=== PATIENT | female | born 1960 | race Hispanic/Latino ===

== ENCOUNTER 2017-03-27 07:49 | Inpatient (IN) | payer MEDICAID, OTHER ==
[2017-03-27 08:29] LABS: Urine Drugs of Abuse Note Disclamer
[2017-03-27 08:40] LABS: Bacteria,Urine 4+ /HPF (Negative); Mucus,Urine FEW /HPF
[2017-03-27 08:50] LABS: Bilirubin,Urine NEG (Negative); Blood,Urine LG (Negative); Ketones,Urine NEG (Negative); Leukocyte Esterase,Urine TR (Negative); Nitrite,Urine NEG (Negative)
[2017-03-27 09:06] LABS: Basophils % (Auto) 0.5 % (0.0-1.8); Eosinophils % (Auto) 0.9 % (0.0-4.3); Hematocrit 31.7 % (30.3-42.9); Hemoglobin 10.6 gm/dl (10.1-14.3); Mean Corpuscular HGB Conc 33 % (30-34); Mean Corpuscular Volume 77 fl (79-97); Platelet Count 417 K/mm3 (140-440); Red Blood Count 4.12 M/mm3 (3.65-5.03); Red Cell Distribution Width 16.9 % (13.2-15.2); White Blood Count 4.6 K/mm3 (4.5-11.0)
[2017-03-27 09:21] LABS: Mean Corpuscular Hemoglobin 26 pg (28-32)
[2017-03-27 09:22] LABS: Anion Gap 21 mmol/L; BUN/Creatinine Ratio 23; Blood Urea Nitrogen 16 mg/dL (7-17); Carbon Dioxide 24 mmol/L (22-30); Chloride 75.1 mmol/L (98-107); Glucose 119 mg/dL (65-100); Potassium 3.1 mmol/L (3.6-5.0)
[2017-03-27 09:24] LABS: Sodium 117 mmol/L (137-145)
[2017-03-27] MEDS ORDERED: MACROBID PO ONE (10:26)
[2017-03-27] MEDS ORDERED: NACL 3% 200 ML IV ONE (10:26)
[2017-03-27] MEDS ORDERED: ATIVAN IV ONE (10:26)
[2017-03-27] MEDS ORDERED: K-DUR PO ONE (10:29)
--- NOTE | 2017-03-27 10:29 | Emergency Department Report ---
ED General Adult HPI - General Chief complaint: Seizure Stated complaint: SEIZURE Time Seen by Provider: 03/27/17 09:27 Source: patient, EMS (ems notes not available at time of chart dictation), RN notes reviewed, old records reviewed Mode of arrival: Stretcher Limitations: Other (patient has no recollection of convulsive event) - History of Present Illness Initial comments: This is a 56-year-old female. Patient has a past medical history of bipolar disorder, anxiety, Crohn's disease, gastric ulcer, hyponatremia. The patient presents to the ER with complaints of seizure, generalized weakness and tremulousness. Patient can't member the seizure. Her symptoms are constant, with the exception of her possible seizure, which has since resolved. She denies headache, neck pain, chest pain, abdominal pain. She endorses dysuria, and extremity aching and cramps. Her symptoms are constant. They do not have exacerbating or relieving factors. She is not homicidal nor suicidal. She denies overdose. -: Sudden Location: left, right, upper extremity, lower extremity Quality: burning, aching Consistency: constant Improves with: rest Worsens with: movement Associated Symptoms: confusion, malaise, weakness. denies: chest pain - Related Data Home Medications Medication Instructions Recorded Confirmed Last Taken Lisinopril [Zestril TAB] 5 mg PO QDAY 08/02/14 03/27/17 12/08/15 09:00 Previous Rx's Medication Instructions Recorded Last Taken Type Quetiapine Fumarate [QUEtiapine 400 mg PO QPM #10 tablet 12/11/15 Unknown Rx Fumarate] Xanax TAB 1 mg PO TID PRN #21 12/11/15 Unknown Rx buPROPion SR [Wellbutrin SR] 150 mg PO QAM #10 tablet 12/11/15 Unknown Rx Pantoprazole [Protonix] 40 mg PO QDAY #20 tablet 02/09/16 Unknown Rx traMADol [Ultram] 50 mg PO Q6HR PRN #20 tablet 02/09/16 Unknown Rx Allergies Allergy/AdvReac Type Severity Reaction Status Date / Time No Known Allergies Allergy Verified 08/02/14 10:33 ED Review of Systems ROS: Stated complaint: SEIZURE Other details as noted in HPI Constitutional: malaise, weakness Eyes: denies: eye discharge ENT: denies: epistaxis Respiratory: denies: cough Cardiovascular: denies: chest pain Gastrointestinal: denies: abdominal pain Genitourinary: dysuria Musculoskeletal: arthralgia, myalgia Skin: denies: lesions Neurological: weakness Psychiatric: anxiety. denies: homicidal thoughts, suicidal thoughts ED Past Medical Hx - Past Medical History Hx Hypertension: Yes (2010) Hx Congestive Heart Failure: No Hx Diabetes: No Hx Arthritis: Yes (spine) Hx Psychiatric Treatment: Yes (BIPOLAR,ANXIETY,PANIC ATTACK) Hx Asthma: No Hx COPD: No Hx HIV: No Additional medical history: hiatal hernia. peptic Ulcer. Blood Transfusion - Surgical History Past Surgical History?: Yes Additional Surgical History: partial hysterectomy - Social History Smoking Status: Never Smoker Substance Use Type: Alcohol, Prescribed - Medications Home Medications: Home Medications Medication Instructions Recorded Confirmed Last Taken Type Lisinopril [Zestril TAB] 5 mg PO QDAY 08/02/14 03/27/17 12/08/15 09:00 History Quetiapine Fumarate [QUEtiapine 400 mg PO QPM #10 tablet 12/11/15 03/27/17 Unknown Rx Fumarate] Xanax TAB 1 mg PO TID PRN #21 12/11/15 03/27/17 Unknown Rx buPROPion SR [Wellbutrin SR] 150 mg PO QAM #10 tablet 12/11/15 03/27/17 Unknown Rx Pantoprazole [Protonix] 40 mg PO QDAY #20 tablet 02/09/16 03/27/17 Unknown Rx traMADol [Ultram] 50 mg PO Q6HR PRN #20 tablet 02/09/16 03/27/17 Unknown Rx ED Physical Exam - General Limitations: No Limitations General appearance: alert, in no apparent distress - Head Head exam: Present: atraumatic, normocephalic - Eye Eye exam: Present: normal appearance, EOMI. Absent: nystagmus - ENT ENT exam: Present: normal exam, normal orophraynx, mucous membranes moist, normal external ear exam - Neck Neck exam: Present: normal inspection, full ROM. Absent: tenderness, meningismus - Respiratory Respiratory exam: Present: normal lung sounds bilaterally. Absent: respiratory distress, wheezes, rales, rhonchi, stridor, chest wall tenderness - Cardiovascular Cardiovascular Exam: Present: regular rate, normal rhythm, normal heart sounds. Absent: systolic murmur, diastolic murmur, rubs, gallop - GI/Abdominal GI/Abdominal exam: Present: soft, normal bowel sounds. Absent: distended, tenderness, guarding, rebound, rigid, pulsatile mass - Extremities Exam Extremities exam: Present: normal inspection, full ROM, tenderness, normal capillary refill - Back Exam Back exam: Present: normal inspection, full ROM. Absent: CVA tenderness (R), CVA tenderness (L), paraspinal tenderness, vertebral tenderness - Neurological Exam Neurological exam: Present: alert, oriented X3, other (Extraocular movements intact. Tongue midline. No facial droop. Facial sensation intact to light touch in the V1, V2, V3 distribution bilaterally. 5 and 5 strength in 4 extremities.. Sensation is intact to light touch in 4 extremities.). Absent: motor sensory deficit - Psychiatric Psychiatric exam: Present: anxious. Absent: homicidal ideation, suicidal ideation - Skin Skin exam: Present: warm, dry, intact, normal color. Absent: rash ED Course Vital Signs 03/27/17 03/27/17 03/27/17 08:14 08:15 08:18 Temperature 98.4 F Pulse Rate 84 67 Respiratory 14 26 H 18 Rate Blood Pressure 121/84 Blood Pressure [Right] O2 Sat by Pulse 100 100 Oximetry 03/27/17 03/27/17 03/27/17 08:30 08:45 09:00 Temperature Pulse Rate 90 104 H 81 Respiratory 28 H 29 H 22 Rate Blood Pressure 122/82 122/82 126/84 Blood Pressure [Right] O2 Sat by Pulse 100 100 100 Oximetry 03/27/17 03/27/17 03/27/17 09:10 09:15 09:30 Temperature Pulse Rate 85 86 Respiratory 18 20 22 Rate Blood Pressure 127/87 132/89 Blood Pressure [Right] O2 Sat by Pulse 100 100 100 Oximetry 03/27/17 03/27/17 03/27/17 09:45 10:01 10:15 Temperature Pulse Rate 92 H 105 H 90 Respiratory 24 40 H 24 Rate Blood Pressure 134/74 107/83 133/81 Blood Pressure [Right] O2 Sat by Pulse 99 99 99 Oximetry 03/27/17 03/27/17 03/27/17 10:30 10:45 11:00 Temperature Pulse Rate 89 93 H 89 Respiratory 17 20 19 Rate Blood Pressure 129/85 129/85 119/78 Blood Pressure [Right] O2 Sat by Pulse 99 98 97 Oximetry 03/27/17 03/27/17 03/27/17 11:15 11:45 12:01 Temperature Pulse Rate 87 98 H Respiratory 15 22 Rate Blood Pressure 114/84 116/80 127/76 Blood Pressure [Right] O2 Sat by Pulse 95 98 98 Oximetry 03/27/17 03/27/17 03/27/17 12:15 12:31 12:45 Temperature Pulse Rate 93 H 104 H 91 H Respiratory 28 H 18 21 Rate Blood Pressure 127/76 127/76 123/85 Blood Pressure [Right] O2 Sat by Pulse 98 97 98 Oximetry 03/27/17 03/27/17 03/27/17 13:01 13:15 13:31 Temperature Pulse Rate 106 H 95 H 88 Respiratory 25 H 18 16 Rate Blood Pressure 123/85 123/85 123/85 Blood Pressure [Right] O2 Sat by Pulse 95 97 97 Oximetry 03/27/17 13:45 Temperature 98.4 F Pulse Rate 89 Respiratory 16 Rate Blood Pressure 123/85 Blood Pressure 123/85 [Right] O2 Sat by Pulse 97 Oximetry - Reevaluation(s) Reevaluation #1: 03/27/17 11:58 Differential diagnosis, including but not limited to: Urinary tract infection, dehydration, intracranial injury, pneumonia, electrolyte derangement, hyponatremia Assessment and plan: 56-year-old female with possible seizure, currently sober, GCS of 15, no midline cervical spine pain or tenderness, NIH score of 0, no abdominal tenderness, appears dehydrated, with some urinary symptoms. Objectively speaking she has profound hyponatremia with a sodium of 117, possibly has a urinary tract infection by symptoms. Case and laboratory studies are discussed with nephrology on-call, Dr. yHman, who will see the patient in consultation. He recommends hypertonic saline, 3%, 200 mL, at 40 mL per hour for a total of 5 hours. X-ray the chest was negative. Noncontrast CT scan of the brain is negative. Hospital physician has been paged to arrange admission for further care and management. 03/27/17 13:53 Reevaluation #2: 03/27/17 12:18 Dr. Stephenson excepts the patient to the medical service. Noncontrast CT scan of the brain is negative Reevaluation #3: 03/27/17 13:37 Reevaluation #4: 03/27/17 13:39 Discussed 3% sodium chloride with pharmacist. As per the pharmacist, this hospital does not have a specific policy requires central line placement for 3% sodium chloride. The pharmacy does not specifically recommend or require a central line placements for 3% sodium chloride. It is also this provider's understanding that 3% sodium chloride administration does not require central access, and should be administered slowly to avoid burning and sclerosis. Dr. Hyman was also contacted and he concurs 03/27/17 13:53 ED Medical Decision Making - Lab Data Result diagrams: 03/27/17 08:53 03/27/17 08:53 Vital Signs 03/27/17 03/27/17 03/27/17 08:14 08:15 08:18 Temperature 98.4 F Pulse Rate 84 67 Respiratory 14 26 H 18 Rate Blood Pressure 121/84 O2 Sat by Pulse 100 100 Oximetry 03/27/17 03/27/17 03/27/17 08:30 08:45 09:00 Temperature Pulse Rate 90 104 H 81 Respiratory 28 H 29 H 22 Rate Blood Pressure 122/82 122/82 126/84 O2 Sat by Pulse 100 100 100 Oximetry 03/27/17 03/27/17 03/27/17 09:10 09:15 09:30 Temperature Pulse Rate 85 86 Respiratory 18 20 22 Rate Blood Pressure 127/87 132/89 O2 Sat by Pulse 100 100 100 Oximetry 03/27/17 03/27/17 03/27/17 09:45 10:01 10:15 Temperature Pulse Rate 92 H 105 H 90 Respiratory 24 40 H 24 Rate Blood Pressure 134/74 107/83 133/81 O2 Sat by Pulse 99 99 99 Oximetry 03/27/17 03/27/17 03/27/17 10:30 10:45 11:00 Temperature Pulse Rate 89 93 H 89 Respiratory 17 20 19 Rate Blood Pressure 129/85 129/85 119/78 O2 Sat by Pulse 99 98 97 Oximetry 03/27/17 03/27/17 11:15 11:45 Temperature Pulse Rate 87 Respiratory 15 Rate Blood Pressure 114/84 116/80 O2 Sat by Pulse 95 98 Oximetry Lab Results 03/27/17 03/27/17 03/27/17 Range/Units 08:23 08:23 08:53 WBC (4.5-11.0) K/mm3 RBC (3.65-5.03) M/mm3 Hgb (10.1-14.3) gm/dl Hct (30.3-42.9) % MCV (79-97) fl MCH (28-32) pg MCHC (30-34) % RDW (13.2-15.2) % Plt Count (140-440) K/mm3 Lymph % (Auto) (13.4-35.0) % [place] % (Auto) (0.0-7.3) % Eos % (Auto) (0.0-4.3) % Baso % (Auto) (0.0-1.8) % Lymph # (1.2-5.4) K/mm3 [place] # (0.0-0.8) K/mm3 Eos # (0.0-0.4) K/mm3 Baso # (0.0-0.1) K/mm3 Seg Neutrophils % (40.0-70.0) % Seg Neutrophils # (1.8-7.7) K/mm3 Sodium 117 L* (137-145) mmol/L Potassium 3.1 L (3.6-5.0) mmol/L Chloride 75.1 L (98-107) mmol/L Carbon Dioxide 24 (22-30) mmol/L Anion Gap 21 mmol/L BUN 16 (7-17) mg/dL Creatinine 0.7 (0.7-1.2) mg/dL Estimated GFR > 60 ml/min BUN/Creatinine Ratio 23 % Glucose 119 H (65-100) mg/dL Osmolality Mosm/kg Calcium 8.0 L (8.4-10.2) mg/dL Total Bilirubin (0.1-1.2) mg/dL Direct Bilirubin (0-0.2) mg/dL Indirect Bilirubin mg/dL AST (5-40) units/L ALT (7-56) units/L Alkaline Phosphatase (35-129) units/L Total Creatine Kinase (30-135) units/L Total Protein (6.3-8.2) g/dL Albumin (3.9-5) g/dL Albumin/Globulin Ratio % TSH (0.270-4.200) mlU/mL Urine Color Yellow (Yellow) Urine Turbidity Clear (Clear) Urine pH 6.0 (5.0-7.0) Ur Specific [place] 1.015 (1.003-1.030) Urine Protein 30 mg/dl (Negative) mg/dL Urine Glucose (UA) Neg (Negative) mg/dL Urine Ketones Neg (Negative) mg/dL Urine Blood Lg (Negative) Urine Nitrite Neg (Negative) Ur Reducing Substances Not Reportable Urine Bilirubin Neg (Negative) Urine Ictotest Not Reportable Urine Urobilinogen 2.0 (<2.0) mg/dL Ur Leukocyte Esterase Tr (Negative) Urine WBC (Auto) 11.0 H (0.0-6.0) /HPF Urine RBC (Auto) 36.0 (0.0-6.0) /HPF Urine Bacteria (Auto) 4+ (Negative) /HPF Hyaline Casts 2 /LPF Urine Mucus Few /HPF Salicylates (2.8-20.0) mg/dL Urine Opiates Screen Presumptive negative Urine Methadone Screen Presumptive negative Acetaminophen (10.0-30.0) ug/mL Ur Barbiturates Screen Presumptive negative Ur Phencyclidine Scrn Presumptive negative Ur Amphetamines Screen Presumptive negative U Benzodiazepines Scrn Presumptive positive Urine Cocaine Screen Presumptive negative U Marijuana (THC) Screen Presumptive positive Drugs of Abuse Note Disclamer Plasma/Serum Alcohol (0-0.07) gm% 03/27/17 03/27/17 03/27/17 Range/Units 08:53 08:53 08:53 WBC 4.6 (4.5-11.0) K/mm3 RBC 4.12 (3.65-5.03) M/mm3 Hgb 10.6 (10.1-14.3) gm/dl Hct 31.7 (30.3-42.9) % MCV 77 L (79-97) fl MCH 26 L (28-32) pg MCHC 33 (30-34) % RDW 16.9 H (13.2-15.2) % Plt Count 417 (140-440) K/mm3 Lymph % (Auto) 13.7 (13.4-35.0) % [place] % (Auto) 15.2 H (0.0-7.3) % Eos % (Auto) 0.9 (0.0-4.3) % Baso % (Auto) 0.5 (0.0-1.8) % Lymph # 0.6 L (1.2-5.4) K/mm3 [place] # 0.7 (0.0-0.8) K/mm3 Eos # 0.0 (0.0-0.4) K/mm3 Baso # 0.0 (0.0-0.1) K/mm3 Seg Neutrophils % 69.7 (40.0-70.0) % Seg Neutrophils # 3.2 (1.8-7.7) K/mm3 Sodium (137-145) mmol/L Potassium (3.6-5.0) mmol/L Chloride (98-107) mmol/L Carbon Dioxide (22-30) mmol/L Anion Gap mmol/L BUN (7-17) mg/dL Creatinine (0.7-1.2) mg/dL Estimated GFR ml/min BUN/Creatinine Ratio % Glucose (65-100) mg/dL Osmolality Mosm/kg Calcium (8.4-10.2) mg/dL Total Bilirubin 1.40 H (0.1-1.2) mg/dL Direct Bilirubin 0.4 H (0-0.2) mg/dL Indirect Bilirubin 1.0 mg/dL AST 140 H (5-40) units/L ALT 74 H (7-56) units/L Alkaline Phosphatase 57 (35-129) units/L Total Creatine Kinase (30-135) units/L Total Protein 7.2 (6.3-8.2) g/dL Albumin 4.1 (3.9-5) g/dL Albumin/Globulin Ratio 1.3 % TSH (0.270-4.200) mlU/mL Urine Color (Yellow) Urine Turbidity (Clear) Urine pH (5.0-7.0) Ur Specific [place] (1.003-1.030) Urine Protein (Negative) mg/dL Urine Glucose (UA) (Negative) mg/dL Urine Ketones (Negative) mg/dL Urine Blood (Negative) Urine Nitrite (Negative) Ur Reducing Substances Urine Bilirubin (Negative) Urine Ictotest Urine Urobilinogen (<2.0) mg/dL Ur Leukocyte Esterase (Negative) Urine WBC (Auto) (0.0-6.0) /HPF Urine RBC (Auto) (0.0-6.0) /HPF Urine Bacteria (Auto) (Negative) /HPF Hyaline Casts /LPF Urine Mucus /HPF Salicylates (2.8-20.0) mg/dL Urine Opiates Screen Urine Methadone Screen Acetaminophen (10.0-30.0) ug/mL Ur Barbiturates Screen Ur Phencyclidine Scrn Ur Amphetamines Screen U Benzodiazepines Scrn Urine Cocaine Screen U Marijuana (THC) Screen Drugs of Abuse Note Plasma/Serum Alcohol < 0.01 (0-0.07) gm% 03/27/17 03/27/17 03/27/17 Range/Units 08:53 08:53 08:53 WBC (4.5-11.0) K/mm3 RBC (3.65-5.03) M/mm3 Hgb (10.1-14.3) gm/dl Hct (30.3-42.9) % MCV (79-97) fl MCH (28-32) pg MCHC (30-34) % RDW (13.2-15.2) % Plt Count (140-440) K/mm3 Lymph % (Auto) (13.4-35.0) % [place] % (Auto) (0.0-7.3) % Eos % (Auto) (0.0-4.3) % Baso % (Auto) (0.0-1.8) % Lymph # (1.2-5.4) K/mm3 [place] # (0.0-0.8) K/mm3 Eos # (0.0-0.4) K/mm3 Baso # (0.0-0.1) K/mm3 Seg Neutrophils % (40.0-70.0) % Seg Neutrophils # (1.8-7.7) K/mm3 Sodium (137-145) mmol/L Potassium (3.6-5.0) mmol/L Chloride (98-107) mmol/L Carbon Dioxide (22-30) mmol/L Anion Gap mmol/L BUN (7-17) mg/dL Creatinine (0.7-1.2) mg/dL Estimated GFR ml/min BUN/Creatinine Ratio % Glucose (65-100) mg/dL Osmolality 245 Mosm/kg Calcium (8.4-10.2) mg/dL Total Bilirubin (0.1-1.2) mg/dL Direct Bilirubin (0-0.2) mg/dL Indirect Bilirubin mg/dL AST (5-40) units/L ALT (7-56) units/L Alkaline Phosphatase (35-129) units/L Total Creatine Kinase 866 H (30-135) units/L Total Protein (6.3-8.2) g/dL Albumin (3.9-5) g/dL Albumin/Globulin Ratio % TSH 1.310 (0.270-4.200) mlU/mL Urine Color (Yellow) Urine Turbidity (Clear) Urine pH (5.0-7.0) Ur Specific [place] (1.003-1.030) Urine Protein (Negative) mg/dL Urine Glucose (UA) (Negative) mg/dL Urine Ketones (Negative) mg/dL Urine Blood (Negative) Urine Nitrite (Negative) Ur Reducing Substances Urine Bilirubin (Negative) Urine Ictotest Urine Urobilinogen (<2.0) mg/dL Ur Leukocyte Esterase (Negative) Urine WBC (Auto) (0.0-6.0) /HPF Urine RBC (Auto) (0.0-6.0) /HPF Urine Bacteria (Auto) (Negative) /HPF Hyaline Casts /LPF Urine Mucus /HPF Salicylates (2.8-20.0) mg/dL Urine Opiates Screen Urine Methadone Screen Acetaminophen (10.0-30.0) ug/mL Ur Barbiturates Screen Ur Phencyclidine Scrn Ur Amphetamines Screen U Benzodiazepines Scrn Urine Cocaine Screen U Marijuana (THC) Screen Drugs of Abuse Note Plasma/Serum Alcohol (0-0.07) gm% 03/27/17 03/27/17 Range/Units 08:53 08:53 WBC (4.5-11.0) K/mm3 RBC (3.65-5.03) M/mm3 Hgb (10.1-14.3) gm/dl Hct (30.3-42.9) % MCV (79-97) fl MCH (28-32) pg MCHC (30-34) % RDW (13.2-15.2) % Plt Count (140-440) K/mm3 Lymph % (Auto) (13.4-35.0) % [place] % (Auto) (0.0-7.3) % Eos % (Auto) (0.0-4.3) % Baso % (Auto) (0.0-1.8) % Lymph # (1.2-5.4) K/mm3 [place] # (0.0-0.8) K/mm3 Eos # (0.0-0.4) K/mm3 Baso # (0.0-0.1) K/mm3 Seg Neutrophils % (40.0-70.0) % Seg Neutrophils # (1.8-7.7) K/mm3 Sodium (137-145) mmol/L Potassium (3.6-5.0) mmol/L Chloride (98-107) mmol/L Carbon Dioxide (22-30) mmol/L Anion Gap mmol/L BUN (7-17) mg/dL Creatinine (0.7-1.2) mg/dL Estimated GFR ml/min BUN/Creatinine Ratio % Glucose (65-100) mg/dL Osmolality Mosm/kg Calcium (8.4-10.2) mg/dL Total Bilirubin (0.1-1.2) mg/dL Direct Bilirubin (0-0.2) mg/dL Indirect Bilirubin mg/dL AST (5-40) units/L ALT (7-56) units/L Alkaline Phosphatase (35-129) units/L Total Creatine Kinase (30-135) units/L Total Protein (6.3-8.2) g/dL Albumin (3.9-5) g/dL Albumin/Globulin Ratio % TSH (0.270-4.200) mlU/mL Urine Color (Yellow) Urine Turbidity (Clear) Urine pH (5.0-7.0) Ur Specific [place] (1.003-1.030) Urine Protein (Negative) mg/dL Urine Glucose (UA) (Negative) mg/dL Urine Ketones (Negative) mg/dL Urine Blood (Negative) Urine Nitrite (Negative) Ur Reducing Substances Urine Bilirubin (Negative) Urine Ictotest Urine Urobilinogen (<2.0) mg/dL Ur Leukocyte Esterase (Negative) Urine WBC (Auto) (0.0-6.0) /HPF Urine RBC (Auto) (0.0-6.0) /HPF Urine Bacteria (Auto) (Negative) /HPF Hyaline Casts /LPF Urine Mucus /HPF Salicylates < 0.3 L (2.8-20.0) mg/dL Urine Opiates Screen Urine Methadone Screen Acetaminophen < 15.0 (10.0-30.0) ug/mL Ur Barbiturates Screen Ur Phencyclidine Scrn Ur Amphetamines Screen U Benzodiazepines Scrn Urine Cocaine Screen U Marijuana (THC) Screen Drugs of Abuse Note Plasma/Serum Alcohol (0-0.07) gm% - EKG Data -: EKG Interpreted by Me EKG shows normal: sinus rhythm - EKG Data 03/27/17 12:04 Normal sinus, 88 bpm, normal axis, QTC prolonged, not morphologically consistent with ST elevation myocardial infarction - Radiology Data Radiology results: image reviewed interpreted by me: X-ray the chest is negative Noncontrast CT scan of the brain: Critical care attestation.: If time is entered above; I have spent that time in minutes in the direct care of this critically ill patient, excluding procedure time. ED Disposition Clinical Impression: Benzodiazepine withdrawal, UTI (urinary tract infection), Hyponatremia Disposition: OP ADMIT IP TO THIS HOSP Is pt being admited?: Yes Condition: Fair
[2017-03-27] MEDS ORDERED: MAGNESIUM SULFATE 2GM/50ML 2 GM/50 ML BAG IV ONE (10:30)
[2017-03-27] MEDS ORDERED: MAG-OX PO ONE (10:30)
[2017-03-27 11:18] LABS: Albumin 4.1 g/dL (3.9-5); Albumin/Globulin Ratio 1.3 %; Bilirubin,Direct 0.4 mg/dL (0-0.2); Bilirubin,Total 1.4 mg/dL (0.1-1.2); Total Protein 7.2 g/dL (6.3-8.2)
[2017-03-27] MEDS: KCL 10MEQ/100ML 10 MEQ/100 ML BAG IV SCH ×4 (11:49→15:39)
--- NOTE | 2017-03-27 12:04 | Cat Scan Report ---
CT HEAD WITHOUT CONTRAST: 03/27/17 07:49:00 CLINICAL: Seizure. TECHNIQUE: 2.5-mm noncontrast scans. COMPARISON:None FINDINGS: The ventricles and sulci are normal for age. No abnormal density. No mass or mass effect. No hemorrhage, edema or extra-axial collection. The sinuses are clear. Normal orbits and soft tissues. The calvarium and skull base are intact. IMPRESSION: Normal head CT.
--- NOTE | 2017-03-27 12:18 | History and Physical Report ---
Medications and Allergies Allergies Allergy/AdvReac Type Severity Reaction Status Date / Time No Known Allergies Allergy Verified 08/02/14 10:33 Home Medications Medication Instructions Recorded Confirmed Last Taken Type Lisinopril [Zestril TAB] 5 mg PO QDAY 08/02/14 02/03/16 12/08/15 09:00 History Pantoprazole [Protonix TAB] 40 mg PO BID 45 Days 12/11/15 02/03/16 Unknown Rx Quetiapine Fumarate [QUEtiapine 400 mg PO QPM #10 tablet 12/11/15 02/03/16 Unknown Rx Fumarate] Xanax TAB 1 mg PO TID PRN #21 12/11/15 02/03/16 Unknown Rx buPROPion SR [Wellbutrin SR] 150 mg PO QAM #10 tablet 12/11/15 02/03/16 Unknown Rx Pantoprazole [Protonix] 40 mg PO QDAY #20 tablet 02/09/16 Unknown Rx traMADol [Ultram] 50 mg PO Q6HR PRN #20 tablet 02/09/16 Unknown Rx Active Meds: Active Medications Sodium Chloride (Nacl 3%) 200 mls @ 40 mls/hr IV ONCE.ED ONE Stop: 03/27/17 15:25 Last Admin: 03/27/17 11:24 Dose: 40 mls/hr Potassium Chloride (Kcl 10meq/100ml) 10 meq in 100 mls @ 100 mls/hr IV Q1H WALDO Stop: 03/27/17 14:59 Last Admin: 03/27/17 11:49 Dose: 100 mls/hr Exam - Constitutional Vitals: Temp Pulse Resp BP Pulse Ox 98.4 F 87 15 116/80 98 03/27/17 08:18 03/27/17 11:15 03/27/17 11:15 03/27/17 11:45 03/27/17 11:45 Results - Labs CBC & Chem 7: 03/27/17 08:53 03/27/17 08:53 Labs: Laboratory Last Values WBC 4.6 K/mm3 (4.5-11.0) 03/27/17 08:53 RBC 4.12 M/mm3 (3.65-5.03) 03/27/17 08:53 Hgb 10.6 gm/dl (10.1-14.3) 03/27/17 08:53 Hct 31.7 % (30.3-42.9) 03/27/17 08:53 MCV 77 fl (79-97) L 03/27/17 08:53 MCH 26 pg (28-32) L 03/27/17 08:53 MCHC 33 % (30-34) 03/27/17 08:53 RDW 16.9 % (13.2-15.2) H 03/27/17 08:53 Plt Count 417 K/mm3 (140-440) 03/27/17 08:53 Lymph % (Auto) 13.7 % (13.4-35.0) 03/27/17 08:53 [place] % (Auto) 15.2 % (0.0-7.3) H 03/27/17 08:53 Eos % (Auto) 0.9 % (0.0-4.3) 03/27/17 08:53 Baso % (Auto) 0.5 % (0.0-1.8) 03/27/17 08:53 Lymph # 0.6 K/mm3 (1.2-5.4) L 03/27/17 08:53 [place] # 0.7 K/mm3 (0.0-0.8) 03/27/17 08:53 Eos # 0.0 K/mm3 (0.0-0.4) 03/27/17 08:53 Baso # 0.0 K/mm3 (0.0-0.1) 03/27/17 08:53 Seg Neutrophils % 69.7 % (40.0-70.0) 03/27/17 08:53 Seg Neutrophils # 3.2 K/mm3 (1.8-7.7) 03/27/17 08:53 Sodium 117 mmol/L (137-145) L* 03/27/17 08:53 Potassium 3.1 mmol/L (3.6-5.0) L 03/27/17 08:53 Chloride 75.1 mmol/L (98-107) L 03/27/17 08:53 Carbon Dioxide 24 mmol/L (22-30) 03/27/17 08:53 Anion Gap 21 mmol/L 03/27/17 08:53 BUN 16 mg/dL (7-17) 03/27/17 08:53 Creatinine 0.7 mg/dL (0.7-1.2) 03/27/17 08:53 Estimated GFR > 60 ml/min 03/27/17 08:53 BUN/Creatinine Ratio 23 % 03/27/17 08:53 Glucose 119 mg/dL (65-100) H 03/27/17 08:53 Osmolality 245 Mosm/kg 03/27/17 08:53 Calcium 8.0 mg/dL (8.4-10.2) L 03/27/17 08:53 Total Bilirubin 1.40 mg/dL (0.1-1.2) H 03/27/17 08:53 Direct Bilirubin 0.4 mg/dL (0-0.2) H 03/27/17 08:53 Indirect Bilirubin 1.0 mg/dL 03/27/17 08:53 AST 140 units/L (5-40) H 03/27/17 08:53 ALT 74 units/L (7-56) H 03/27/17 08:53 Alkaline Phosphatase 57 units/L (35-129) 03/27/17 08:53 Total Creatine Kinase 866 units/L (30-135) H 03/27/17 08:53 Total Protein 7.2 g/dL (6.3-8.2) 03/27/17 08:53 Albumin 4.1 g/dL (3.9-5) 03/27/17 08:53 Albumin/Globulin Ratio 1.3 % 03/27/17 08:53 TSH 1.310 mlU/mL (0.270-4.200) 03/27/17 08:53 Urine Color Yellow (Yellow) 03/27/17 08:23 Urine Turbidity Clear (Clear) 03/27/17 08:23 Urine pH 6.0 (5.0-7.0) 03/27/17 08:23 Ur Specific [place] 1.015 (1.003-1.030) 03/27/17 08:23 Urine Protein 30 mg/dl mg/dL (Negative) 03/27/17 08:23 Urine Glucose (UA) Neg mg/dL (Negative) 03/27/17 08:23 Urine Ketones Neg mg/dL (Negative) 03/27/17 08:23 Urine Blood Lg (Negative) 03/27/17 08:23 Urine Nitrite Neg (Negative) 03/27/17 08:23 Ur Reducing Substances Not Reportable 03/27/17 08:23 Urine Bilirubin Neg (Negative) 03/27/17 08:23 Urine Ictotest Not Reportable 03/27/17 08:23 Urine Urobilinogen 2.0 mg/dL (<2.0) 03/27/17 08:23 Ur Leukocyte Esterase Tr (Negative) 03/27/17 08:23 Urine WBC (Auto) 11.0 /HPF (0.0-6.0) H 03/27/17 08:23 Urine RBC (Auto) 36.0 /HPF (0.0-6.0) 03/27/17 08:23 Urine Bacteria (Auto) 4+ /HPF (Negative) 03/27/17 08:23 Hyaline Casts 2 /LPF 03/27/17 08:23 Urine Mucus Few /HPF 03/27/17 08:23 Salicylates < 0.3 mg/dL (2.8-20.0) L 03/27/17 08:53 Urine Opiates Screen Presumptive negative 03/27/17 08:23 Urine Methadone Screen Presumptive negative 03/27/17 08:23 Acetaminophen < 15.0 ug/mL (10.0-30.0) 03/27/17 08:53 Ur Barbiturates Screen Presumptive negative 03/27/17 08:23 Ur Phencyclidine Scrn Presumptive negative 03/27/17 08:23 Ur Amphetamines Screen Presumptive negative 03/27/17 08:23 U Benzodiazepines Scrn Presumptive positive 03/27/17 08:23 Urine Cocaine Screen Presumptive negative 03/27/17 08:23 U Marijuana (THC) Screen Presumptive positive 03/27/17 08:23 Drugs of Abuse Note Disclamer 03/27/17 08:23 Plasma/Serum Alcohol < 0.01 gm% (0-0.07) 03/27/17 08:53
[2017-03-27] MEDS ORDERED: DULCOLAX PR PRN (12:21)
[2017-03-27] MEDS ORDERED: ALUM-MAG HYDROX-SIMETH 200-200-20MG/5ML PO PRN (12:21)
[2017-03-27] MEDS ORDERED: MILK OF MAGNESIA PO PRN (12:21)
[2017-03-27] MEDS ORDERED: NON-FORMULARY (Xanax Tab 1 MG) PO PRN (12:22)
--- NOTE | 2017-03-27 12:24 | History and Physical Report ---
History of Present Illness Chief complaint: I think i had a seizure History of present illness: 56 YO Female with HTN, Bipolar, Anxiety, Panic Attacks, OA PUD presents to ED for evaluation. Pt states that she has experienced generalized weakness, and tremors for the past several days with worsening symptoms over the past 1 day. Pt states that she thinks that she had a seizure this morning. Pt states that she felt shaky, and later awoke with her talking to her. Pt denies fever , chills, CP, Palpitations, Vertigo, headache, neck pain, abdominal pain, trauma , productive cough, recent ill contacts, BRBPR, leg swelling, calf pain, prolonged immobility/travel, individual/family history of DVT/PE. Pt seen and evaluated in ED and found to have a serum sodium of 117. Pt confused on exam, but is able to protect her airway. Nephrology consulted, and patient admitted to ICU. Past History Past Medical History: hypertension, other (PUD, Bipolar, Anxiety, ) Past Surgical History: hysterectomy Social history: Family history: hypertension Medications and Allergies Allergies Allergy/AdvReac Type Severity Reaction Status Date / Time No Known Allergies Allergy Verified 08/02/14 10:33 Home Medications Medication Instructions Recorded Confirmed Last Taken Type Lisinopril [Zestril TAB] 5 mg PO QDAY 08/02/14 03/27/17 12/08/15 09:00 History Quetiapine Fumarate [QUEtiapine 400 mg PO QPM #10 tablet 12/11/15 03/27/17 Unknown Rx Fumarate] Xanax TAB 1 mg PO TID PRN #21 12/11/15 03/27/17 Unknown Rx buPROPion SR [Wellbutrin SR] 150 mg PO QAM #10 tablet 12/11/15 03/27/17 Unknown Rx Pantoprazole [Protonix] 40 mg PO QDAY #20 tablet 02/09/16 03/27/17 Unknown Rx traMADol [Ultram] 50 mg PO Q6HR PRN #20 tablet 02/09/16 03/27/17 Unknown Rx Active Meds: Active Medications Al Hydrox/Mg Hydrox/Simethicone (Alum-Mag Hydrox-Simeth 348-114-45kq/5ml) 30 ml PO Q4H PRN PRN Reason: Indigestion Bisacodyl (Dulcolax) 10 mg [place] QDAY PRN PRN Reason: constipation unrelieved by MOM Sodium Chloride (Nacl 3%) 200 mls @ 40 mls/hr IV ONCE.ED ONE Stop: 03/27/17 15:25 Last Admin: 03/27/17 11:24 Dose: 40 mls/hr Potassium Chloride (Kcl 10meq/100ml) 10 meq in 100 mls @ 100 mls/hr IV Q1H WALDO Stop: 03/27/17 14:59 Last Admin: 03/27/17 12:23 Dose: 100 mls/hr Lisinopril (Zestril) 5 mg PO QDAY WALDO Magnesium Hydroxide (Milk Of Magnesia) 30 ml PO Q4H PRN PRN Reason: Constipation Miscellaneous Medication (Xanax Tab) 1 mg PO TID PRN PRN Reason: Anxiety Pantoprazole Sodium (Protonix) 40 mg PO QDAY WALDO Tramadol HCl (Ultram) 50 mg PO Q6HR PRN PRN Reason: Pain Review of Systems Constitutional: no weight loss, no weight gain, no fever, no chills Ears, nose, mouth and throat: no ear pain, no ear discharge, no tinnitis, no decreased hearing, no nose pain, no nasal congestion, no nasal discharge, no sinus pressure Breasts: no change in shape, no swelling, no mass Cardiovascular: no chest pain, no orthopnea, no palpitations, no rapid/ irregular heart beat, no edema, no syncope Respiratory: no cough, no cough with sputum, no excessive sputum, no hemoptysis , no shortness of breath Gastrointestinal: no abdominal pain, no nausea, no vomiting, no diarrhea, no constipation, no change in bowel habits, no hematemesis Genitourinary Female: no pelvic pain, no flank pain, no menorrhagia, no dysuria , no urinary frequency Rectal: no pain, no incontinence, no bleeding Musculoskeletal: no neck pain, no shooting arm pain, no arm numbness/tingling, no low back pain, no shooting leg pain, no leg numbness/tingling, no redness of joints Integumentary: no rash, no pruritis, no redness, no sores, no wounds, no jaundice Neurological: seizures, syncope, no transient paralysis, no paralysis, no weakness, no vertigo, no headaches, no migraines, no convulsions, no aphasia, no change in speech Psychiatric: anxiety, no memory loss, no change in sleep habits, no sleep disturbances, no insomnia, no hypersomnia, no change in appetite, no change in libido, no suicidal ideation, no disorientation Endocrine: no cold intolerance, no heat intolerance, no polyphagia, no excessive thirst, no polydipsia, no polyuria, no nocturia Hematologic/Lymphatic: no easy bruising, no easy bleeding Allergic/Immunologic: no urticaria, no allergic rhinitis, no wheezing Exam - Constitutional Vitals: Temp Pulse Resp BP Pulse Ox 98.4 F 87 15 116/80 98 03/27/17 08:18 03/27/17 11:15 03/27/17 11:15 03/27/17 11:45 03/27/17 11:45 General appearance: Present: mild distress - EENT Eyes: Present: PERRL ENT: hearing intact, clear oral mucosa - Neck Neck: Present: supple, normal ROM - Respiratory Respiratory effort: normal Respiratory: bilateral: CTA - Cardiovascular Heart Sounds: Present: S1 & S2. Absent: rub, click - Extremities Extremities: pulses symmetrical, No edema Peripheral Pulses: within normal limits - Abdominal General gastrointestinal: Present: soft, non-tender, non-distended, normal bowel sounds Female genitourinary: Present: normal - Integumentary Integumentary: Present: clear, warm, dry - Musculoskeletal Musculoskeletal: gait normal, strength equal bilaterally - Psychiatric Psychiatric: appropriate mood/affect, intact judgment & insight, agitated - Neurologic Neurologic: CNII-XII intact, moves all extremities Results - Labs CBC & Chem 7: 03/27/17 08:53 03/27/17 08:53 Labs: Abnormal lab results 03/27/17 03/27/17 03/27/17 Range/Units 08:23 08:53 08:53 MCV 77 L (79-97) fl MCH 26 L (28-32) pg RDW 16.9 H (13.2-15.2) % Burke % (Auto) 15.2 H (0.0-7.3) % Lymph # 0.6 L (1.2-5.4) K/mm3 Sodium 117 L* (137-145) mmol/L Potassium 3.1 L (3.6-5.0) mmol/L Chloride 75.1 L (98-107) mmol/L Glucose 119 H (65-100) mg/dL Calcium 8.0 L (8.4-10.2) mg/dL Total Bilirubin (0.1-1.2) mg/dL Direct Bilirubin (0-0.2) mg/dL AST (5-40) units/L ALT (7-56) units/L Total Creatine Kinase (30-135) units/L Urine WBC (Auto) 11.0 H (0.0-6.0) /HPF Salicylates (2.8-20.0) mg/dL 03/27/17 03/27/17 03/27/17 Range/Units 08:53 08:53 08:53 MCV (79-97) fl MCH (28-32) pg RDW (13.2-15.2) % Burke % (Auto) (0.0-7.3) % Lymph # (1.2-5.4) K/mm3 Sodium (137-145) mmol/L Potassium (3.6-5.0) mmol/L Chloride (98-107) mmol/L Glucose (65-100) mg/dL Calcium (8.4-10.2) mg/dL Total Bilirubin 1.40 H (0.1-1.2) mg/dL Direct Bilirubin 0.4 H (0-0.2) mg/dL AST 140 H (5-40) units/L ALT 74 H (7-56) units/L Total Creatine Kinase 866 H (30-135) units/L Urine WBC (Auto) (0.0-6.0) /HPF Salicylates < 0.3 L (2.8-20.0) mg/dL Assessment and Plan - Patient Problems (1) Hyponatremia Onset Date: 12/09/15 Current Visit: Yes Status: Acute Plan to address problem: Symptomatic Hyponatremia: Hypertonic saline, nephrology consulted, monitor serum sodium q 3 hrs, monitor uop q shift, neuro checks, The high probability of a clinically significant, sudden or life threatening deterioration of the [Endocrine, neurologic, renal] system(s) required my full and direct attention, intervention and personal management. The aggregate critical care time was [65] minutes. This time is in addition to time spent performing reported procedures but includes the following: [x] Data Review and interpretation [x] Patient assessment and monitoring of vital signs [x] Documentation [x] Medication orders and management (2) Hypokalemia Current Visit: Yes Status: Acute Plan to address problem: repleted, repeat serum bmp in am. (3) Hypertension Current Visit: No Status: Chronic Qualifiers: Hypertension type: essential hypertension Qualified Code(s): I10 - Essential (primary) hypertension Plan to address problem: monitor bp q shift, supportive care. (4) Encephalopathy Current Visit: Yes Status: Acute Plan to address problem: Neuro checks, CT head, supportive care, treat hyponatremia. (5) DVT prophylaxis Current Visit: Yes Status: Acute
--- NOTE | 2017-03-27 13:34 | XRay Report ---
AP CHEST :03/27/17 07:49:00 CLINICAL: Seizure and possible pneumonia. COMPARISON:05/28/11 FINDINGS: Normal heart and pulmonary vasculature. The lungs are normally expanded and clear. Aortic tortuosity. The bones and soft tissues are unremarkable. IMPRESSION: Normal chest.
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
[2017-03-27] MEDS: XANAX PO PRN (15:56)
[2017-03-27] MEDS: ULTRAM PO PRN (16:35)
[2017-03-27 17:56] LABS: Anion Gap 22 mmol/L; BUN/Creatinine Ratio 22; Blood Urea Nitrogen 11 mg/dL (7-17); Calcium 8.3 mg/dL (8.4-10.2); Carbon Dioxide 21 mmol/L (22-30); Chloride 87.1 mmol/L (98-107); Glucose 99 mg/dL (65-100); Potassium 4.7 mmol/L (3.6-5.0); Sodium 125 mmol/L (137-145)
[2017-03-27] MEDS: PERCOCET 5/325 PO PRN (20:45)
[2017-03-28] MEDS: PERCOCET 5/325 PO PRN ×2 (05:15→15:30)
[2017-03-28] MEDS: ULTRAM PO PRN ×3 (05:16→22:26)
[2017-03-28 05:57] LABS: Sodium, Urine 35 mmol/L
[2017-03-28 08:27] LABS: Anion Gap 15 mmol/L; BUN/Creatinine Ratio 24; Blood Urea Nitrogen 12 mg/dL (7-17); Calcium 8.6 mg/dL (8.4-10.2); Carbon Dioxide 26 mmol/L (22-30); Chloride 90.7 mmol/L (98-107); Glucose 96 mg/dL (65-100); Potassium 4.7 mmol/L (3.6-5.0); Sodium 127 mmol/L (137-145)
[2017-03-28] MEDS: XANAX PO PRN ×3 (09:05→22:26)
[2017-03-28] MEDS: PROTONIX PO SCH (09:05)
[2017-03-28] MEDS ORDERED: ZESTRIL PO SCH (10:00)
--- NOTE | 2017-03-28 10:03 | Progress Note ---
Assessment and Plan Assessment and plan: 56 YO Female with HTN, Bipolar, Anxiety, Panic Attacks, OA PUD who was having muscle spasms, weakness and feeling of increased thirst, she drank 8 glasses of ice water, and later that day she had LOC, found her on the floor unconscious, eyes rolled back, frothing at the mouth and with violent shaking of extremities cw with seizure Severe Hyponatremia Symptomatic Hyponatremia: sp hypertonic saline, now switch to NS metabolic encephalopathy now resolved Status epilepticus likely due to hyponatremia, provoked. No further workup, CTH wnl Hypokalemia repleted. now wnl Hypertension dc all BP meds, as patient is normotensive she is improved, transfer to Med/surg floor with remote tele The high probability of a clinically significant, sudden or life threatening deterioration of the [Endocrine, neurologic, renal] system(s) required my full and direct attention, intervention and personal management. The aggregate critical care time was [65] minutes. This time is in addition to time spent performing reported procedures but includes the following: [x] Data Review and interpretation [x] Patient assessment and monitoring of vital signs [x] Documentation [x] Medication orders and management History Interval history: she reports feeling well now and has no complaints Hospitalist Physical - Physical exam Narrative exam: General.: Appears well, no distress, nontoxic HEENT: Moist mucous membranes, extraocular muscles intact, no lymphadenopathy Neck: supple Cardiac: S1-S2 heard Lungs: clear to auscultation bilaterally Abdomen: soft , nontender, nondistended, bowel sounds positive Extremities: no edema clubbing or cyanosis Skin: no rash or lesions Neurologic: no gross focal deficits Psych: anxious, appropriate behavior, appropriate mood, corporative, judgment intact - Constitutional Vitals: Temp Pulse Resp BP Pulse Ox 97.6 F 85 20 106/48 98 03/28/17 08:24 03/28/17 09:01 03/28/17 09:01 03/28/17 09:01 03/28/17 08:31 General appearance: Present: mild distress Results - Labs CBC & Chem 7: 03/27/17 08:53 03/29/17 06:06 Labs: Laboratory Last Values WBC 4.6 K/mm3 (4.5-11.0) 03/27/17 08:53 RBC 4.12 M/mm3 (3.65-5.03) 03/27/17 08:53 Hgb 10.6 gm/dl (10.1-14.3) 03/27/17 08:53 Hct 31.7 % (30.3-42.9) 03/27/17 08:53 MCV 77 fl (79-97) L 03/27/17 08:53 MCH 26 pg (28-32) L 03/27/17 08:53 MCHC 33 % (30-34) 03/27/17 08:53 RDW 16.9 % (13.2-15.2) H 03/27/17 08:53 Plt Count 417 K/mm3 (140-440) 03/27/17 08:53 Lymph % (Auto) 13.7 % (13.4-35.0) 03/27/17 08:53 Mcintosh % (Auto) 15.2 % (0.0-7.3) H 03/27/17 08:53 Eos % (Auto) 0.9 % (0.0-4.3) 03/27/17 08:53 Baso % (Auto) 0.5 % (0.0-1.8) 03/27/17 08:53 Lymph # 0.6 K/mm3 (1.2-5.4) L 03/27/17 08:53 Mcintosh # 0.7 K/mm3 (0.0-0.8) 03/27/17 08:53 Eos # 0.0 K/mm3 (0.0-0.4) 03/27/17 08:53 Baso # 0.0 K/mm3 (0.0-0.1) 03/27/17 08:53 Seg Neutrophils % 69.7 % (40.0-70.0) 03/27/17 08:53 Seg Neutrophils # 3.2 K/mm3 (1.8-7.7) 03/27/17 08:53 Sodium 127 mmol/L (137-145) L 03/28/17 07:31 Potassium 4.7 mmol/L (3.6-5.0) 03/28/17 07:31 Chloride 90.7 mmol/L (98-107) L 03/28/17 07:31 Carbon Dioxide 26 mmol/L (22-30) 03/28/17 07:31 Anion Gap 15 mmol/L 03/28/17 07:31 BUN 12 mg/dL (7-17) 03/28/17 07:31 Creatinine 0.5 mg/dL (0.7-1.2) L 03/28/17 07:31 Estimated GFR > 60 ml/min 03/28/17 07:31 BUN/Creatinine Ratio 24 % 03/28/17 07:31 Glucose 96 mg/dL (65-100) 03/28/17 07:31 Osmolality 245 Mosm/kg 03/27/17 08:53 Calcium 8.6 mg/dL (8.4-10.2) 03/28/17 07:31 Magnesium 2.60 mg/dL (1.7-2.3) H 03/27/17 12:08 Total Bilirubin 1.40 mg/dL (0.1-1.2) H 03/27/17 08:53 Direct Bilirubin 0.4 mg/dL (0-0.2) H 03/27/17 08:53 Indirect Bilirubin 1.0 mg/dL 03/27/17 08:53 AST 140 units/L (5-40) H 03/27/17 08:53 ALT 74 units/L (7-56) H 03/27/17 08:53 Alkaline Phosphatase 57 units/L (35-129) 03/27/17 08:53 Total Creatine Kinase 866 units/L (30-135) H 03/27/17 08:53 Total Protein 7.2 g/dL (6.3-8.2) 03/27/17 08:53 Albumin 4.1 g/dL (3.9-5) 03/27/17 08:53 Albumin/Globulin Ratio 1.3 % 03/27/17 08:53 TSH 1.310 mlU/mL (0.270-4.200) 03/27/17 08:53 Urine Color Yellow (Yellow) 03/27/17 08:23 Urine Turbidity Clear (Clear) 03/27/17 08:23 Urine pH 6.0 (5.0-7.0) 03/27/17 08:23 Ur Specific [place] 1.015 (1.003-1.030) 03/27/17 08:23 Urine Protein 30 mg/dl mg/dL (Negative) 03/27/17 08:23 Urine Glucose (UA) Neg mg/dL (Negative) 03/27/17 08:23 Urine Ketones Neg mg/dL (Negative) 03/27/17 08:23 Urine Blood Lg (Negative) 03/27/17 08:23 Urine Nitrite Neg (Negative) 03/27/17 08:23 Ur Reducing Substances Not Reportable 03/27/17 08:23 Urine Bilirubin Neg (Negative) 03/27/17 08:23 Urine Ictotest Not Reportable 03/27/17 08:23 Urine Urobilinogen 2.0 mg/dL (<2.0) 03/27/17 08:23 Ur Leukocyte Esterase Tr (Negative) 03/27/17 08:23 Urine WBC (Auto) 11.0 /HPF (0.0-6.0) H 03/27/17 08:23 Urine RBC (Auto) 36.0 /HPF (0.0-6.0) 03/27/17 08:23 Urine Bacteria (Auto) 4+ /HPF (Negative) 03/27/17 08:23 Hyaline Casts 2 /LPF 03/27/17 08:23 Urine Mucus Few /HPF 03/27/17 08:23 Urine Osmolality 227 Mosm/kg 03/28/17 05:10 Urine Creatinine 44.1 mg/dL (0.1-20.0) H 03/28/17 05:10 Urine Sodium 35 mmol/L 03/28/17 05:10 Salicylates < 0.3 mg/dL (2.8-20.0) L 03/27/17 08:53 Urine Opiates Screen Presumptive negative 03/27/17 08:23 Urine Methadone Screen Presumptive negative 03/27/17 08:23 Acetaminophen < 15.0 ug/mL (10.0-30.0) 03/27/17 08:53 Ur Barbiturates Screen Presumptive negative 03/27/17 08:23 Ur Phencyclidine Scrn Presumptive negative 03/27/17 08:23 Ur Amphetamines Screen Presumptive negative 03/27/17 08:23 U Benzodiazepines Scrn Presumptive positive 03/27/17 08:23 Urine Cocaine Screen Presumptive negative 03/27/17 08:23 U Marijuana (THC) Screen Presumptive positive 03/27/17 08:23 Drugs of Abuse Note Disclamer 03/27/17 08:23 Plasma/Serum Alcohol < 0.01 gm% (0-0.07) 03/27/17 08:53
[2017-03-28] MEDS: NACL 0.9% 1000 ML 1,000 ML IV SCH ×2 (11:30→22:28)
[2017-03-28] MEDS ORDERED: NACL 0.9% 1000 ML 1,000 ML IV SCH (12:00)
--- NOTE | 2017-03-28 12:58 | Progress Note ---
Assessment and Plan - Patient Problems (1) Hyponatremia Onset Date: 12/09/15 Current Visit: Yes Status: Acute Plan to address problem: Labs reviewed, serum sodium level was 127 today, yesterday's serum sodium level was 117-124 Hypotonic hyponatremia - exact etiology unclear, possibly multi-factorial secondary to wellbutrin, hypokalemia, increased free water intake, vomiting, work up Status post administration of 3% Normal Saline infusion on 03/27/17 Review of labs from 2015 showed serum sodium level between 119-133 and 126-141 in 2016 Obtain serial sodium levels every 8 hours, check sodium level now Discontinue 0.9% NS infusion at 100 ml/hr for now Will start on D5W infusion if serum sodium level increases to quickly Maintain fluid restriction of 1 liter per day Status post CT Head without contrast showed no normal CT Head Obtain daily weight Nunez Catheter: No Strict intake and output Intake= 526 ml Output= 1200 ml (Net= 673 ml) Renal plan discussed with Dr Mai Continue supportive therapy (2) Hypokalemia Current Visit: Yes Status: Acute Plan to address problem: Resolved (3) Bipolar disorder Onset Date: 12/09/15 Current Visit: No Status: Chronic Qualifiers: Active/Remission status: A Current bipolar episode type: C Current episode severity: C Psychotic features: P Most recent bipolar episode type: most recent episode unspecified type Plan to address problem: As per primary team (4) Hypertension Current Visit: No Status: Chronic Qualifiers: Hypertension type: essential hypertension Qualified Code(s): I10 - Essential (primary) hypertension Plan to address problem: Restarted on home Lisinopril 5 mg orally once a day Blood pressure stable on current regimen Monitor blood pressure closely (5) Anxiety Current Visit: Yes Status: Acute Plan to address problem: Started on xanax as needed for anxiety As per primary team Subjective Date of service: 03/28/17 Interval history: Patient reports she continues to have muscle spasms/cramps to both upper and lower extremities and neck pain. Patient eating at time of my exam. No acute distress. Objective - Vital Signs Vital signs: Vital Signs - 12hr 03/28/17 03/28/17 03/28/17 01:00 01:31 02:00 Temperature Pulse Rate 88 81 79 Pulse Rate [ From Monitor] Respiratory 14 16 13 Rate Blood Pressure 81/50 81/50 92/58 O2 Sat by Pulse 97 90 100 Oximetry 03/28/17 03/28/17 03/28/17 02:31 03:00 03:31 Temperature Pulse Rate 79 81 82 Pulse Rate [ From Monitor] Respiratory 11 L 13 14 Rate Blood Pressure 92/58 87/62 92/58 O2 Sat by Pulse 98 98 97 Oximetry 03/28/17 03/28/17 03/28/17 03:51 04:00 04:31 Temperature 97.7 F Pulse Rate 77 74 Pulse Rate [ 77 From Monitor] Respiratory 13 15 Rate Blood Pressure 93/63 87/62 O2 Sat by Pulse 95 94 Oximetry 03/28/17 03/28/17 03/28/17 05:01 05:15 05:16 Temperature Pulse Rate 96 H Pulse Rate [ From Monitor] Respiratory 17 12 12 Rate Blood Pressure 87/62 O2 Sat by Pulse Oximetry 03/28/17 03/28/17 03/28/17 05:31 06:00 06:15 Temperature Pulse Rate 74 73 Pulse Rate [ From Monitor] Respiratory 15 14 13 Rate Blood Pressure 109/65 102/74 O2 Sat by Pulse 99 Oximetry 03/28/17 03/28/17 03/28/17 06:16 06:31 07:00 Temperature Pulse Rate 78 75 Pulse Rate [ From Monitor] Respiratory 14 13 11 L Rate Blood Pressure 109/65 95/57 O2 Sat by Pulse 95 94 Oximetry 03/28/17 03/28/17 03/28/17 07:31 08:00 08:20 Temperature Pulse Rate 78 77 Pulse Rate [ 83 From Monitor] Respiratory 13 12 14 Rate Blood Pressure 95/57 98/67 O2 Sat by Pulse 98 94 98 Oximetry 03/28/17 03/28/17 03/28/17 08:24 08:31 09:01 Temperature 97.6 F Pulse Rate 79 85 Pulse Rate [ From Monitor] Respiratory 14 20 Rate Blood Pressure 98/67 106/48 O2 Sat by Pulse 98 Oximetry - General Appearance General appearance: well-developed (no acute distress) EENT: ATNC Neck: no JVD Respiratory: Present: Clear to Ascultation Cardiology: regular, S1S2 Gastrointestinal: normoactive bowel sounds, no tenderness Integumentary: warm and dry Neurologic: alert and oriented x3 (moves all 4 extremities, follows simple commands) Musculoskeletal: other (no edema to both lower extremities) Psychiatric: cooperative - Lab 03/27/17 08:53 03/28/17 07:31 Most recent lab results Calcium 8.6 mg/dL (8.4-10.2) 03/28/17 07:31 Magnesium 2.60 mg/dL (1.7-2.3) H 03/27/17 12:08 Urine Creatinine 44.1 mg/dL (0.1-20.0) H 03/28/17 05:10 Urine Sodium 35 mmol/L 03/28/17 05:10
--- NOTE | 2017-03-28 17:33 | Event Note ---
Date: 03/28/17 Repeat sodium level was 130 at 1300, will start on D5W infusion at 50 ml/hr to avoid overcorrection of hyponatremia Monitor serial sodium level every 8 hours
[2017-03-28] MEDS ORDERED: D5W 1,000 ML IV SCH (18:00)
[2017-03-29 04:48] LABS: Anion Gap 21 mmol/L; BUN/Creatinine Ratio 24; Blood Urea Nitrogen 12 mg/dL (7-17); Calcium 8.4 mg/dL (8.4-10.2); Carbon Dioxide 21 mmol/L (22-30); Chloride 95.1 mmol/L (98-107); Glucose 66 mg/dL (65-100); Sodium 133 mmol/L (137-145)
--- NOTE | 2017-03-29 08:10 | Progress Note ---
Assessment and Plan Assessment and plan: 56 YO Female with HTN, Bipolar, Anxiety, Panic Attacks, OA PUD who was having muscle spasms, weakness and feeling of increased thirst, she drank 8 glasses of ice water, and later that day she had LOC, found her on the floor unconscious, eyes rolled back, frothing at the mouth and with violent shaking of extremities cw with seizure Severe Hyponatremia Symptomatic Hyponatremia: continue NS, improved metabolic encephalopathy now resolved Status epilepticus likely due to hyponatremia, provoked. No further workup, CTH wnl Hypokalemia repleted. now wnl Hypertension dc all BP meds, as patient is normotensive History Interval history: she reports feeling well now and has no complaints Hospitalist Physical - Physical exam Narrative exam: General.: Appears well, no distress, nontoxic HEENT: Moist mucous membranes, extraocular muscles intact, no lymphadenopathy Neck: supple Cardiac: S1-S2 heard Lungs: clear to auscultation bilaterally Abdomen: soft , nontender, nondistended, bowel sounds positive Extremities: no edema clubbing or cyanosis Skin: no rash or lesions Neurologic: no gross focal deficits Psych: anxious, appropriate behavior, appropriate mood, corporative, judgment intact - Constitutional Vitals: Temp Pulse Resp BP Pulse Ox 98.1 F 76 16 87/52 93 03/29/17 03:58 03/29/17 03:58 03/29/17 03:58 03/29/17 03:58 03/29/17 03:58 General appearance: Present: no acute distress Results - Labs CBC & Chem 7: 03/27/17 08:53 03/29/17 06:06 Labs: Laboratory Last Values WBC 4.6 K/mm3 (4.5-11.0) 03/27/17 08:53 RBC 4.12 M/mm3 (3.65-5.03) 03/27/17 08:53 Hgb 10.6 gm/dl (10.1-14.3) 03/27/17 08:53 Hct 31.7 % (30.3-42.9) 03/27/17 08:53 MCV 77 fl (79-97) L 03/27/17 08:53 MCH 26 pg (28-32) L 03/27/17 08:53 MCHC 33 % (30-34) 03/27/17 08:53 RDW 16.9 % (13.2-15.2) H 03/27/17 08:53 Plt Count 417 K/mm3 (140-440) 03/27/17 08:53 Lymph % (Auto) 13.7 % (13.4-35.0) 03/27/17 08:53 [place] % (Auto) 15.2 % (0.0-7.3) H 03/27/17 08:53 Eos % (Auto) 0.9 % (0.0-4.3) 03/27/17 08:53 Baso % (Auto) 0.5 % (0.0-1.8) 03/27/17 08:53 Lymph # 0.6 K/mm3 (1.2-5.4) L 03/27/17 08:53 [place] # 0.7 K/mm3 (0.0-0.8) 03/27/17 08:53 Eos # 0.0 K/mm3 (0.0-0.4) 03/27/17 08:53 Baso # 0.0 K/mm3 (0.0-0.1) 03/27/17 08:53 Seg Neutrophils % 69.7 % (40.0-70.0) 03/27/17 08:53 Seg Neutrophils # 3.2 K/mm3 (1.8-7.7) 03/27/17 08:53 Sodium 132 mmol/L (137-145) L 03/29/17 06:06 Potassium 4.0 mmol/L (3.6-5.0) 03/29/17 03:42 Chloride 95.1 mmol/L (98-107) L 03/29/17 03:42 Carbon Dioxide 21 mmol/L (22-30) L 03/29/17 03:42 Anion Gap 21 mmol/L 03/29/17 03:42 BUN 12 mg/dL (7-17) 03/29/17 03:42 Creatinine 0.5 mg/dL (0.7-1.2) L 03/29/17 03:42 Estimated GFR > 60 ml/min 03/29/17 03:42 BUN/Creatinine Ratio 24 % 03/29/17 03:42 Glucose 66 mg/dL (65-100) 03/29/17 03:42 Osmolality 245 Mosm/kg 03/27/17 08:53 Calcium 8.4 mg/dL (8.4-10.2) 03/29/17 03:42 Magnesium 2.60 mg/dL (1.7-2.3) H 03/27/17 12:08 Total Bilirubin 1.40 mg/dL (0.1-1.2) H 03/27/17 08:53 Direct Bilirubin 0.4 mg/dL (0-0.2) H 03/27/17 08:53 Indirect Bilirubin 1.0 mg/dL 03/27/17 08:53 AST 140 units/L (5-40) H 03/27/17 08:53 ALT 74 units/L (7-56) H 03/27/17 08:53 Alkaline Phosphatase 57 units/L (35-129) 03/27/17 08:53 Total Creatine Kinase 866 units/L (30-135) H 03/27/17 08:53 Total Protein 7.2 g/dL (6.3-8.2) 03/27/17 08:53 Albumin 4.1 g/dL (3.9-5) 03/27/17 08:53 Albumin/Globulin Ratio 1.3 % 03/27/17 08:53 TSH 1.310 mlU/mL (0.270-4.200) 03/27/17 08:53 Urine Color Yellow (Yellow) 03/27/17 08:23 Urine Turbidity Clear (Clear) 03/27/17 08:23 Urine pH 6.0 (5.0-7.0) 03/27/17 08:23 Ur Specific [place] 1.015 (1.003-1.030) 03/27/17 08:23 Urine Protein 30 mg/dl mg/dL (Negative) 03/27/17 08:23 Urine Glucose (UA) Neg mg/dL (Negative) 03/27/17 08:23 Urine Ketones Neg mg/dL (Negative) 03/27/17 08:23 Urine Blood Lg (Negative) 03/27/17 08:23 Urine Nitrite Neg (Negative) 03/27/17 08:23 Ur Reducing Substances Not Reportable 03/27/17 08:23 Urine Bilirubin Neg (Negative) 03/27/17 08:23 Urine Ictotest Not Reportable 03/27/17 08:23 Urine Urobilinogen 2.0 mg/dL (<2.0) 03/27/17 08:23 Ur Leukocyte Esterase Tr (Negative) 03/27/17 08:23 Urine WBC (Auto) 11.0 /HPF (0.0-6.0) H 03/27/17 08:23 Urine RBC (Auto) 36.0 /HPF (0.0-6.0) 03/27/17 08:23 Urine Bacteria (Auto) 4+ /HPF (Negative) 03/27/17 08:23 Hyaline Casts 2 /LPF 03/27/17 08:23 Urine Mucus Few /HPF 03/27/17 08:23 Urine Osmolality 227 Mosm/kg 03/28/17 05:10 Urine Creatinine 44.1 mg/dL (0.1-20.0) H 03/28/17 05:10 Urine Sodium 35 mmol/L 03/28/17 05:10 Salicylates < 0.3 mg/dL (2.8-20.0) L 03/27/17 08:53 Urine Opiates Screen Presumptive negative 03/27/17 08:23 Urine Methadone Screen Presumptive negative 03/27/17 08:23 Acetaminophen < 15.0 ug/mL (10.0-30.0) 03/27/17 08:53 Ur Barbiturates Screen Presumptive negative 03/27/17 08:23 Ur Phencyclidine Scrn Presumptive negative 03/27/17 08:23 Ur Amphetamines Screen Presumptive negative 03/27/17 08:23 U Benzodiazepines Scrn Presumptive positive 03/27/17 08:23 Urine Cocaine Screen Presumptive negative 03/27/17 08:23 U Marijuana (THC) Screen Presumptive positive 03/27/17 08:23 Drugs of Abuse Note Disclamer 03/27/17 08:23 Plasma/Serum Alcohol < 0.01 gm% (0-0.07) 03/27/17 08:53
[2017-03-29] MEDS: PROTONIX PO SCH (09:48)
[2017-03-29] MEDS: XANAX PO PRN ×2 (09:49→18:00)
[2017-03-29] MEDS: PERCOCET 5/325 PO PRN ×2 (09:49→18:00)
[2017-03-29] MEDS: NACL 0.9% 1000 ML 1,000 ML IV SCH (12:00)
--- NOTE | 2017-03-29 17:27 | Progress Note ---
Assessment and Plan Hyponatremia, Hypotonic: -Initially may have some degree of hypovolemic pathalogy although now appears euvolemic. Pt was having N/V OP and drinking water so could have increased ADH pathology from it as well. -Will d/c NS. Fluid restrict 1L/day. -Start Salt tabs 1 gm BID -Check Uric acid/BNP. -Avoid SSRIs, SNRIs or thiazide type diuretics. -Pt s/p 3% Saline on 03/27. Hypokalemia: -Resolved Bipolar disorder: Anxiety and depression: -Avoid SSRIs, SNRIs. -Per primary Essential Hypertension: -BP stable without BP meds. Microcytic anemia: -W/u per primary Elevated Liver function tests: -AST/ALT ration >2:1. Could be due to etOH. -Per primary Isai Evans MD Nephrology, Hypertension, Dialysis, Transplantation Phone no: [phone] Subjective Date of service: 03/29/17 Interval history: Denies CP/SHOB. Endorses N/V at home. Denies diarrhea. Says drank lots of water at home. Objective - Exam Narrative Exam: GE: AAOX3 HEENT: PERRLA Neck: no JVD CVS: RRR Chest: CTAB Abd: Soft/NT/ND/BS+ Ext: No cce Psyche: Appropriate mood - Vital Signs Vital signs: Vital Signs - 12hr 03/29/17 03/29/17 03/29/17 08:12 10:00 11:41 Temperature 98.1 F 97.6 F Pulse Rate 80 77 80 Respiratory 20 20 Rate Blood Pressure 113/75 141/93 O2 Sat by Pulse 99 97 Oximetry - Lab 03/27/17 08:53 03/29/17 15:25 Most recent lab results Calcium 8.4 mg/dL (8.4-10.2) 03/29/17 03:42 Magnesium 2.60 mg/dL (1.7-2.3) H 03/27/17 12:08 Urine Creatinine 44.1 mg/dL (0.1-20.0) H 03/28/17 05:10 Urine Sodium 35 mmol/L 03/28/17 05:10
[2017-03-29] MEDS: SODIUM CHLORIDE PO SCH (21:28)
[2017-03-30 05:31] LABS: Anion Gap 15 mmol/L; BUN/Creatinine Ratio 20; Blood Urea Nitrogen 10 mg/dL (7-17); Calcium 8.5 mg/dL (8.4-10.2); Carbon Dioxide 22 mmol/L (22-30); Chloride 102.1 mmol/L (98-107); Glucose 85 mg/dL (65-100); Potassium 4.2 mmol/L (3.6-5.0); Sodium 135 mmol/L (137-145)
[2017-03-30 06:11] LABS: Uric Acid 3.5 mg/dL (3.5-7.6)
[2017-03-30] MEDS: XANAX PO PRN (07:45)
[2017-03-30] MEDS: PERCOCET 5/325 PO PRN (07:46)
--- NOTE | 2017-03-30 09:16 | Discharge Summary ---
Providers - Providers Date of Admission: 03/27/17 12:21 Attending physician: PARVEZ LOPEZ MD Primary care physician: JEWELRY DESIGNER Hospitalization Condition: Fair Hospital course: 56 YO Female with HTN, Bipolar, Anxiety, Panic Attacks, OA PUD who was having muscle spasms, weakness and feeling of increased thirst, she drank 8 glasses of ice water, and later that day she had LOC, found her on the floor unconscious, eyes rolled back, frothing at the mouth and with violent shaking of extremities cw with seizure. She was admitted after having a seizure loss was likely provoked by severe hyponatremia. She was treated with hypertonic saline and then converted to normal saline. Her serum sodium improved. She was co-managed by nephrology while she was in the hospital. Workup was concerning for SIADH, therefore salt tablets were also added to her medications. Wellbutrin was discontinued at it is known to cause hyponatremia. Also her blood pressure medications were discontinued as the patient remained normotensive throughout her hospital stay. Patient's clinically improved her electrolytes improved and she was subsequently discharged home Discharge diagnosis Severe hyponatremia SIADH Metabolic encephalopathy Status epilepticus Hypokalemia Hypertension Disposition: DC-01 TO HOME OR SELFCARE Time spent for discharge: 33 minutes Core Measure Documentation - Palliative Care Palliative Care/ Comfort Measures: Not Applicable - Core Measures Any of the following diagnoses?: none Exam - Constitutional Vitals: Temp Pulse Resp BP Pulse Ox 97.7 F 73 20 109/49 97 03/30/17 07:22 03/30/17 07:22 03/30/17 07:22 03/30/17 07:22 03/30/17 07:22 General appearance: Present: no acute distress, well-nourished - EENT Eyes: Present: PERRL ENT: hearing intact, clear oral mucosa - Neck Neck: Present: supple, normal ROM - Respiratory Respiratory effort: normal Respiratory: bilateral: CTA - Cardiovascular Heart Sounds: Present: S1 & S2. Absent: rub, click - Extremities Extremities: pulses symmetrical, No edema Peripheral Pulses: within normal limits - Abdominal General gastrointestinal: Present: soft, non-tender, non-distended, normal bowel sounds Female genitourinary: Present: normal - Integumentary Integumentary: Present: clear, warm, dry - Musculoskeletal Musculoskeletal: gait normal, strength equal bilaterally - Psychiatric Psychiatric: appropriate mood/affect, intact judgment & insight - Neurologic Neurologic: CNII-XII intact, moves all extremities Plan Follow up with: PRIMARY CARE, [Primary Care Provider] - 3-5 Days Prescriptions: Sodium Chloride 1 gm PO BID #60 tablet
[2017-03-30] MEDS: SODIUM CHLORIDE PO SCH (10:15)
[2017-03-30] MEDS: PROTONIX PO SCH (10:15)
--- NOTE | 2017-03-30 10:40 | Progress Note ---
Assessment and Plan Hyponatremia, Hypotonic: -improving -d/c Nacl on discharge, patient was educated about water restriction, she will be followed in our office within 1-2 weeks -Avoid SSRIs, SNRIs or thiazide type diuretics. Hypokalemia: -Resolved Bipolar disorder: Anxiety and depression: -Avoid SSRIs, SNRIs. -Per primary Essential Hypertension: -BP stable without BP meds. Microcytic anemia: -W/u per primary Subjective Date of service: 03/30/17 Principal diagnosis: hyponatremia Interval history: denies acute issues, feels ready to go home Objective - Vital Signs Vital signs: Vital Signs - 12hr 03/30/17 03/30/17 03/30/17 01:40 04:41 07:22 Temperature 97.3 F L 97.6 F 97.7 F Pulse Rate 85 71 73 Respiratory 18 18 20 Rate Blood Pressure 116/77 109/49 O2 Sat by Pulse 97 98 97 Oximetry - General Appearance General appearance: well-developed, well-nourished, appears stated age EENT: ATNC, PERRL, mucous membranes moist Neck: no JVD, no carotid bruit Respiratory: Present: Clear to Ascultation. Absent: Rales, Ronchi, Wheezes Cardiology: regular, S1S2 Gastrointestinal: normoactive bowel sounds, no tenderness, no distended, no guarding Integumentary: no rash, warm and dry Neurologic: no focal deficit, no asterixis, alert and oriented x3 Musculoskeletal: other (no edema in BLE) Psychiatric: mood/affect appropriate, cooperative - Lab 03/27/17 08:53 03/30/17 04:04 Most recent lab results Calcium 8.5 mg/dL (8.4-10.2) 03/30/17 04:04 Magnesium 2.60 mg/dL (1.7-2.3) H 03/27/17 12:08 Urine Creatinine 44.1 mg/dL (0.1-20.0) H 03/28/17 05:10 Urine Sodium 35 mmol/L 03/28/17 05:10
[2017-03-30 12:22] VITALS: BP 123/88
== END 2017-03-30 13:32 | disposition home or self-care (01) | DRG 100 ==
LOC: ED 07:49 → CC1 12:21 → 3A 03-28 18:00
PROVIDERS: ADMIT Internal Medicine; ATTEND Internal Medicine
DX: G40.901 Epilepsy, unspecified, not intractable, with status epilepticus (principal); G93.40 Encephalopathy, unspecified; E87.1 Hypo-osmolality and hyponatremia; K50.90 Crohn's disease, unspecified, without complications; N39.0 Urinary tract infection, site not specified; F19.939 Other psychoactive substance use, unspecified with withdrawal, unspecified; F31.9 Bipolar disorder, unspecified; E87.6 Hypokalemia; I10 Essential (primary) hypertension; F41.9 Anxiety disorder, unspecified; M19.90 Unspecified osteoarthritis, unspecified site; Z87.11 Personal history of peptic ulcer disease; Z90.710 Acquired absence of both cervix and uterus; Z82.49 Family history of ischemic heart disease and other diseases of the circulatory system
CPT/HCPCS: 36415; 70450; 71010; 80048; 80074; 80307; 80320; 81001; 82550; 82570; 83735; 83880; 83930; 83935; 84295; 84300; 84443; 84550; 85025; 87086; 93005; 93010; 96365; 96375; G0480; J2060; J3475; J3480; J7030; J7050; J7070

== ENCOUNTER 2018-08-06 12:42 | Emergency (ER) | payer SELFPAY | END 2018-08-06 13:11 | disposition left against medical advice (07) | LOC: ED 12:42 | DX: M25.572 Pain in left ankle and joints of left foot (principal); Z53.21 Procedure and treatment not carried out due to patient leaving prior to being seen by health care provider ==

== ENCOUNTER 2018-11-14 13:45 | Inpatient (IN) | payer SELFPAY ==
[2018-11-14 14:46] LABS: Hematocrit 36.3 % (30.3-42.9); Hemoglobin 12.3 gm/dl (10.1-14.3); Mean Corpuscular HGB Conc 34 % (30-34); Mean Corpuscular Volume 83 fl (79-97); Platelet Count 283 K/mm3 (140-440); Red Blood Count 4.38 M/mm3 (3.65-5.03); Red Cell Distribution Width 18.9 % (13.2-15.2)
[2018-11-14 15:47] LABS: BUN/Creatinine Ratio 8; Blood Urea Nitrogen 4 mg/dL (7-17); Calcium 8.5 mg/dL (8.4-10.2); Hemolysis Index 9
[2018-11-14] MEDS ORDERED: NACL 0.9% 1000 ML 1,000 ML IV ONE (17:53)
[2018-11-14] MEDS ORDERED: BENADRYL IV ONE (17:53)
[2018-11-14] MEDS ORDERED: REGLAN IV ONE (17:53)
[2018-11-14] MEDS ORDERED: D5NS 1,000 ML IV SCH (18:00)
[2018-11-14 19:07] LABS: Alanine Aminotransferase 61 units/L (7-56); Albumin 4.2 g/dL (3.9-5)
[2018-11-14 19:10] LABS: INR 1.07 (0.87-1.13)
[2018-11-14 19:11] LABS: Bilirubin,Direct < 0.2 mg/dL (0-0.2); Partial Thromboplastin Time 27.5 Sec. (24.2-36.6)
--- NOTE | 2018-11-14 20:10 | Emergency Department Report ---
ED N/V/D HPI - General Chief complaint: Nausea/Vomiting/Diarrhea Stated complaint: SEIZURES Time Seen by Provider: 11/14/18 17:51 Source: patient Mode of arrival: Ambulatory Limitations: No Limitations - History of Present Illness Initial comments: Patient is a 58-year-old white female with a history of peptic ulcer disease hypertension bipolar ,seizures, and hiatal hernia who presents from nausea vomiting diarrhea 3 days and dizziness questionable seizure 2 days ago patient states symptoms are exacerbated by by mouth intake symptoms are relieved by nothing by mouth pain described as left lower quadrant left upper quadrant burning aching there is no melena no dark stools no hemoptysis NAUSEA vomiting was 2 days ago last diarrhea stool was this a.m. last intake was this a.m. complaint: nausea, vomiting, diarrhea, abdominal pain Onset/Timin -: days(s) Description of Vomiting: food contents Description of Diarrhea: water Associated Abdominal Pain: Yes Location: LUQ, LLQ Severity: moderate Pain Scale: 6 Quality: cramping, aching Consistency: constant Improves with: none Worsens with: eating Associated Symptoms: malaise, nausea/vomiting - Related Data Previous Rx's Medication Instructions Recorded Last Taken Type Quetiapine Fumarate [QUEtiapine 400 mg PO QPM #10 tablet 12/11/15 Unknown Rx Fumarate] Xanax TAB 1 mg PO TID PRN #21 12/11/15 Unknown Rx Pantoprazole [Protonix TAB] 40 mg PO QDAY #20 tablet 02/09/16 Unknown Rx traMADol [Ultram 50 MG tab] 50 mg PO Q6HR PRN #20 tablet 02/09/16 Unknown Rx Sodium Chloride 1 gm PO BID #60 tablet 03/30/17 Unknown Rx Allergies Allergy/AdvReac Type Severity Reaction Status Date / Time No Known Allergies Allergy Verified 08/06/18 12:43 ED Review of Systems ROS: Stated complaint: SEIZURES Other details as noted in HPI Constitutional: malaise. denies: chills, fever Eyes: denies: eye pain, eye discharge, vision change ENT: denies: ear pain, throat pain Respiratory: denies: cough, shortness of breath, wheezing Cardiovascular: denies: chest pain, palpitations Endocrine: no symptoms reported Gastrointestinal: abdominal pain, nausea, vomiting, diarrhea. denies: constipation, hematemesis, melena, hematochezia Genitourinary: denies: urgency, dysuria, frequency, hematuria, discharge, dyspareunia Musculoskeletal: denies: back pain, joint swelling, arthralgia Skin: denies: rash, lesions Neurological: denies: headache, weakness, numbness, paresthesias, confusion, vertigo Psychiatric: denies: anxiety, depression Hematological/Lymphatic: denies: easy bleeding, easy bruising ED Past Medical Hx - Past Medical History Previous Medical History?: Yes Hx Hypertension: Yes (2010) Hx Congestive Heart Failure: No Hx Diabetes: No Hx Arthritis: Yes (spine) Hx Seizures: Yes Hx Psychiatric Treatment: Yes (BIPOLAR,ANXIETY,PANIC ATTACK) Hx Asthma: No Hx COPD: No Hx HIV: No Additional medical history: hiatal hernia. peptic Ulcer. Blood Transfusion - Surgical History Past Surgical History?: Yes Additional Surgical History: partial hysterectomy - Social History Smoking Status: Never Smoker Substance Use Type: Alcohol - Medications Home Medications: Home Medications Medication Instructions Recorded Confirmed Last Taken Type Quetiapine Fumarate [QUEtiapine 400 mg PO QPM #10 tablet 12/11/15 03/27/17 Unknown Rx Fumarate] Xanax TAB 1 mg PO TID PRN #21 12/11/15 03/27/17 Unknown Rx Pantoprazole [Protonix TAB] 40 mg PO QDAY #20 tablet 02/09/16 03/27/17 Unknown Rx traMADol [Ultram 50 MG tab] 50 mg PO Q6HR PRN #20 tablet 02/09/16 03/27/17 Unknown Rx Sodium Chloride 1 gm PO BID #60 tablet 03/30/17 Unknown Rx ED Physical Exam - General Limitations: No Limitations General appearance: alert, in no apparent distress - Head Head exam: Present: atraumatic, normocephalic - Eye Eye exam: Present: normal appearance, PERRL, EOMI Pupils: Present: normal accommodation - ENT ENT exam: Present: normal orophraynx, mucous membranes moist, normal external ear exam. Absent: TM's normal bilaterally - Neck Neck exam: Present: normal inspection, full ROM. Absent: tenderness, lymphadenopathy, thyromegaly - Respiratory Respiratory exam: Present: normal lung sounds bilaterally. Absent: respiratory distress, wheezes, stridor, chest wall tenderness - Cardiovascular Cardiovascular Exam: Present: regular rate, normal rhythm, normal heart sounds. Absent: systolic murmur, diastolic murmur, rubs, gallop - GI/Abdominal GI/Abdominal exam: Present: soft, tenderness (RUQ ), normal bowel sounds. Absent: distended, guarding, rebound, rigid, bruit, hernia - Rectal Rectal exam: Present: deferred - Extremities Exam Extremities exam: Present: normal inspection, full ROM, normal capillary refill. Absent: tenderness, pedal edema, joint swelling - Back Exam Back exam: Present: normal inspection, full ROM. Absent: tenderness, CVA tenderness (R), CVA tenderness (L), muscle spasm, paraspinal tenderness, vertebral tenderness, rash noted - Neurological Exam Neurological exam: Present: alert, oriented X3, CN II-XII intact, normal gait, reflexes normal. Absent: motor sensory deficit - Expanded Neurological Exam Expanded Patient oriented to: Present: person, place, time Speech: Present: fluid speech Cranial nerves: EOM's Intact: Normal, Gag Reflex: Normal, Tongue Deviation: Normal, Nystagmus: Normal, Facial Sensation: Normal Cerebellar function: Finger to Nose: Normal, Heel to Schwartz: Normal, Romberg: Normal Motor strength exam: RUE: 5, LUE: 5, RLE: 5, LLE: 5 Best Eye Response ([place]): (4) open spontaneously Best Motor Response ([place]): (6) obeys commands Best Verbal Response ([place]): (5) oriented [place] Total: 15 - Psychiatric Psychiatric exam: Present: anxious. Absent: homicidal ideation, suicidal ideation - Skin Skin exam: Present: warm, dry, intact, normal color. Absent: rash ED Course Vital Signs 11/14/18 11/14/18 11/14/18 14:10 18:41 21:08 Temperature 98.8 F 98.2 F Pulse Rate 116 H 106 H Respiratory 20 18 18 Rate Blood Pressure 144/99 Blood Pressure 136/96 [Left] O2 Sat by Pulse 95 100 97 Oximetry ED Medical Decision Making - Lab Data Result diagrams: 11/14/18 14:25 11/14/18 14:25 Labs 11/14/18 11/14/18 11/14/18 14:25 14:25 18:22 WBC 3.6 L RBC 4.38 Hgb 12.3 Hct 36.3 MCV 83 MCH 28 MCHC 34 RDW 18.9 H Plt Count 283 PT INR APTT Sodium 126 L Potassium 4.2 Chloride 91.2 L Carbon Dioxide 14 L Anion Gap 25 BUN 4 L Creatinine 0.5 L Estimated GFR > 60 BUN/Creatinine Ratio 8 Glucose 111 H Calcium 8.5 Total Bilirubin 0.60 Direct Bilirubin < 0.2 Indirect Bilirubin 0.4 AST 130 H ALT 61 H Alkaline Phosphatase 91 Troponin T < 0.010 Total Protein 7.6 Albumin 4.2 Albumin/Globulin Ratio 1.2 Lipase 111 H 11/14/18 18:22 WBC RBC Hgb Hct MCV MCH MCHC RDW Plt Count PT 13.6 INR 1.07 APTT 27.5 Sodium Potassium Chloride Carbon Dioxide Anion Gap BUN Creatinine Estimated GFR BUN/Creatinine Ratio Glucose Calcium Total Bilirubin Direct Bilirubin Indirect Bilirubin AST ALT Alkaline Phosphatase Troponin T Total Protein Albumin Albumin/Globulin Ratio Lipase - Radiology Data Radiology results: report reviewed, image reviewed Ordering Physician: NELSY JOHNSTON NP Date of Service: 11/14/18 Procedure(s): CT abdomen pelvis w con Accession Number(s): [id number] cc: NELSY JOHNSTON NP CT abdomen pelvis w con INDICATION: abd pain. TECHNIQUE: All CT scans at this location are performed using the following dose modulation technique: Automated exposure control. CONTRAST: Omnipaque 300, 100 cc IV injection. COMPARISON: None available. CT abdomen: There are 2 noncalcified nodules at the extreme right lung base. The larger measures 7 mm. Evaluation the parenchymal organs demonstrates diffuse fatty infiltration of the liver. The remaining parenchymal organs are unremarkable other than small benign-appearing left renal cyst. Negative for abdominal mass, fluid collection or inflammation. The bowel is not thickened or obstructed. A solitary loop of mildly dilated small bowel is seen at the left upper quadrant. CT PELVIS: Negative for distal ureteral stone, pelvic fluid collection or inflammation. Status post previous hysterectomy. A small fat-containing paraumbilical hernia is noted. IMPRESSION: 1. Negative for obstruction or localized inflammation. 2. Mildly dilated segment of small bowel at the left upper quadrant is likely incidental. 3. Incidental pulmonary nodules. Please see below: INCIDENTAL PULMONARY NODULE RECOMMENDATIONS Solid Nodule size 6-8 mm -- Multiple - Low Risk Patient: CT at 3-6 months, then consider CT at 18-24 months - High Risk Patient: CT at 3-6 months, then CT at 18-24 month Note These recommendations do not apply to lung cancer screening, patients with immunosuppression, or patients with known primary cancer. Note Newly detected indeterminate nodule in persons 35 years of age or older. Persons under the age of 35 should not receive follow-up unless there is a known primary cancer. Low Risk Patient -- minimal or absent history of smoking and of other known risk factors. High Risk Patient -- history of smoking or of other known risk factors. Nodule dimensions are average of long and short axes, rounded to the nearest millimeter. Based on 2017 Fleischner Society Guidelines found in Radiology 2017 284:228-243. [email or web address] Signer Name: Jay Cisneros MD Signed: 11/14/2018 7:17 PM Workstation Name: [id number] Transcribed By: REF Dictated By: TONYA GAMA MD Electronically Authenticated By: TONYA GAMA MD Signed Date/Time: 11/14/181916 DD/ 10 TD/TT: - Medical Decision Making ct: fatting liver disease , no bleed no mass, labs noted for moderate dehydratio n, pt not tolerating po intake, consulted ed attending recommendation admit for hospitalist, Dx : Intractable N/V , Dehydration, Abdominal pain,. Consulted Hospitalist: recommendation admit to inpatient, Dx: Dehydration, Intractable N/V, discussed tx plan with patient and [place], both verbalize agreement and understanding of tx plan pt for admission to inpatient at this time. Critical care attestation.: If time is entered above; I have spent that time in minutes in the direct care of this critically ill patient, excluding procedure time. ED Disposition Clinical Impression: Dehydration Intractable nausea and vomiting Qualifiers: Vomiting type: unspecified Qualified Code(s): R11.2 - Nausea with vomiting, unspecified Abdominal pain Qualifiers: Abdominal location: unspecified location Qualified Code(s): R10.9 - Unspecified abdominal pain Disposition: OP ADMIT IP TO THIS HOSP Is pt being admited?: Yes Does the pt Need Aspirin: No Condition: Stable Time of Disposition: 21:23
--- NOTE | 2018-11-14 20:21 | Cat Scan Report ---
CT abdomen pelvis w con INDICATION: abd pain. TECHNIQUE: All CT scans at this location are performed using the following dose modulation technique: Automated exposure control. CONTRAST: Omnipaque 300, 100 cc IV injection. COMPARISON: None available. CT abdomen: There are 2 noncalcified nodules at the extreme right lung base. The larger measures 7 mm . Evaluation the parenchymal organs demonstrates diffuse fatty infiltration of the liver. The remaining parenchymal organs are unremarkable other than small benign-appearing left renal cyst. Negative for abdominal mass, fluid collection or inflammation. The bowel is not thickened or obstruct ed. A solitary loop of mildly dilated small bowel is seen at the left upper quadrant. CT PELVIS: Negative for distal ureteral stone, pelvic fluid collection or inflammation. Status post previous hysterectomy. A small fat-containing paraumbilical hernia is noted. IMPRESSION: 1. Negative for obstruction or localized inflammation. 2. Mildly dilated segment of small bowel at the left upper quadrant is likely incidental. 3. Incidental pulmonary nodules. Please see below: INCIDENTAL PULMONARY NODULE RECOMMENDATIONS Solid Nodule size 6-8 mm -- Multiple - Low Risk Patient: CT at 3-6 months, then consider CT at 18-24 months - High Risk Patient: CT at 3-6 months, then CT at 18-24 month Note These recommendations do not apply to lung cancer screening, patients with immunosuppression, o r patients with known primary cancer. Note Newly detected indeterminate nodule in persons 35 years of age or older. Persons under the age of 35 should not receive follow-up unless there is a known primary cancer. Low Risk Patient -- minimal or absent history of smoking and of other known risk factors. High Risk Patient -- history of smoking or of other known risk factors. Nodule dimensions are average of long and short axes, rounded to the nearest millimeter. Based on 2017 Fleischner Society Guidelines found in Radiology 2017 284:228-243. [email or web address] Signer Name: Jay Cisneros MD Signed: 11/14/2018 7:17 PM Workstation Name: [email or web address]
[2018-11-14] MEDS ORDERED: REGLAN IV PRN (21:13)
[2018-11-14 22:10] LABS: Bilirubin,Urine NEG (Negative); Blood,Urine LG (Negative); Color,Urine Yellow (Yellow); Mucus,Urine FEW /HPF; Urobilinogen,Urine < 2.0 mg/dL (<2.0)
[2018-11-14 22:13] LABS: Amphetamine Screen,Urine PRESUMPTIVE NEGATIVE; Cannabinoid Screen,Urine PRESUMPTIVE NEGATIVE; Cocaine Screen,Urine PRESUMPTIVE NEGATIVE; Methadone Screen,Urine PRESUMPTIVE NEGATIVE
[2018-11-14] MEDS: PROTONIX IV SCH (22:13)
[2018-11-14] MEDS ORDERED: ALUM-MAG HYDROX-SIMETH 200-200-20MG/5ML PO PRN (22:22)
[2018-11-14] MEDS ORDERED: TYLENOL PO PRN (22:22)
[2018-11-14] MEDS ORDERED: PERCOCET 5/325 PO PRN (22:22)
[2018-11-14] MEDS ORDERED: SODIUM CHLORIDE FLUSH SYRINGE 10 ML IV PRN (22:22)
[2018-11-14 22:28] LABS: Benzodiazepines Screen,Urine PRESUMPTIVE POSITIVE; Opiate Screen,Urine PRESUMPTIVE POSITIVE
[2018-11-14] MEDS ORDERED: ULTRAM PO PRN (22:34)
[2018-11-14] MEDS ORDERED: XANAX PO PRN (22:34)
--- NOTE | 2018-11-14 22:49 | History and Physical Report ---
History of Present Illness Date of examination: 11/14/18 Chief complaint: Intractable Nausea, vomiting and abdominal pain X 2 weeks History of present illness: 58F with PMH of HTN, BIpolar D/o, Asthma exacerbation, PUD, s/p EGD done a year ago, here at [facility] per pt and his ex spouse with whom she lives still, presents with multiple complaints of recent falls,, profuse nausea and vomiting and scattered epigastric pains, pt states that she has had N/V with meals that she has not been eating well and that " my ulcer is acting up and when it acts up like this, I cannot eat" She states she has been taking her medication. Of note, she is on Omeprazole 40mg PO Daily. She denies any hematochezia, melena, hematemesis albeit she says at times, after vomiting, she notices blood tinged emesis. She last fell 4 days ago in the bathtub and she sustained a left chest well bruise. Since then she denies any substernal CP, SOB She has not had a colonoscopy that she can remember. She reports having no appetite but she is unsure if she has lost weight. She reports been dizzy when she gets up. In the ED, she was found to have NA level of 126. it was 135 on 03/30/2017 and she has a hx of intermittent hyponatremia to mid to upper 120s at times. CT of the abdomen and pelvis report some areas of enteritis. She denies any dysuria, fever, CP, SOB, polyuria, headaches, visual changes, pleuritic CP. , Past History Past Medical History: hypertension, liver disease, seizures, other (bipolar disorder, [place], seizures) Social history: , lives with family, full code Family history: hypertension Medications and Allergies Allergies Allergy/AdvReac Type Severity Reaction Status Date / Time No Known Allergies Allergy Verified 08/06/18 12:43 Home Medications Medication Instructions Recorded Confirmed Last Taken Type Quetiapine Fumarate [QUEtiapine 400 mg PO QPM #10 tablet 12/11/15 11/14/18 Unknown Rx Fumarate] Xanax TAB 1 mg PO TID PRN #21 12/11/15 11/14/18 Unknown Rx traMADol [Ultram 50 MG tab] 50 mg PO Q6HR PRN #20 tablet 02/09/16 11/14/18 Unknown Rx Lisinopril [Zestril TAB] 10 mg PO QDAY 11/14/18 11/14/18 Unknown History Omeprazole 40 mg PO DAILY 11/14/18 11/14/18 Unknown History Tylenol /Codeine # 3 tab 1 tab PO Q6H 11/14/18 11/14/18 Unknown History buPROPion SR [Wellbutrin Sr] 150 mg PO QAM 11/14/18 11/14/18 Unknown History Active Meds: Active Medications Acetaminophen (Tylenol) 650 mg PO Q4H PRN PRN Reason: Pain MILD(1-3)/Fever >100.5/LINARES Al Hydrox/Mg Hydrox/Simethicone (Alum-Mag Hydrox-Simeth [phone]/5ml) 30 ml PO Q4H PRN PRN Reason: Indigestion Bupropion HCl (Wellbutrin Sr) 150 mg PO QAM [facility] Dextrose/Sodium Chloride (D5ns) 1,000 mls @ 100 mls/hr IV DIRECT WALDO Lisinopril (Zestril) 10 mg PO QDAY [facility] Metoclopramide HCl (Reglan) 10 mg IV Q6H PRN PRN Reason: Nausea And Vomiting Miscellaneous Medication (Omeprazole [Omeprazole]) 40 mg PO DAILY [facility] Miscellaneous Medication (Quetiapine Fumarate [Quetiapine Fumarate]) 400 mg PO QPM [facility] Miscellaneous Medication (Xanax Tab) 1 mg PO TID PRN PRN Reason: Anxiety Morphine Sulfate (Morphine) 2 mg IV Q4H PRN PRN Reason: Pain, Moderate (4-6) Ondansetron HCl (Zofran) 4 mg IV Q8H PRN PRN Reason: Nausea And Vomiting Oxycodone/Acetaminophen (Percocet 5/325) 1 tab PO Q6H PRN PRN Reason: Pain, Moderate (4-6) Pantoprazole Sodium (Protonix) 40 mg IV BID [facility] Last Admin: 11/14/18 22:13 Dose: 40 mg Documented by: Sodium Chloride (Sodium Chloride Flush Syringe 10 Ml) 10 ml IV BID [facility] Sodium Chloride (Sodium Chloride Flush Syringe 10 Ml) 10 ml IV PRN PRN PRN Reason: LINE FLUSH Tramadol HCl (Ultram) 50 mg PO Q6HR PRN PRN Reason: Pain Review of Systems All systems: negative Constitutional: weakness, poor appetite Exam - Constitutional Vitals: Temp Pulse Resp BP Pulse Ox 98.2 F 106 H 18 136/96 97 11/14/18 21:08 11/14/18 21:08 11/14/18 21:08 11/14/18 21:08 11/14/18 21:08 General appearance: Present: no acute distress, well-nourished - EENT Eyes: Present: PERRL ENT: hearing intact, clear oral mucosa - Neck Neck: Present: supple, normal ROM - Respiratory Respiratory effort: normal Respiratory: bilateral: CTA - Cardiovascular Heart Sounds: Present: S1 & S2. Absent: rub, click - Extremities Extremities: pulses symmetrical, No edema Peripheral Pulses: within normal limits - Abdominal General gastrointestinal: Present: soft, non-tender, distended, normal bowel sounds, hypoactive bowel sounds. Absent: rigid Female genitourinary: Present: normal - Integumentary Integumentary: Present: clear, warm, dry - Musculoskeletal Musculoskeletal: gait normal, strength equal bilaterally - Psychiatric Psychiatric: appropriate mood/affect, intact judgment & insight - Neurologic Neurologic: CNII-XII intact, moves all extremities Results - Labs CBC & Chem 7: 11/14/18 14:25 11/14/18 14:25 Labs: Laboratory Last Values WBC 3.6 K/mm3 (4.5-11.0) L 11/14/18 14:25 RBC 4.38 M/mm3 (3.65-5.03) 11/14/18 14:25 Hgb 12.3 gm/dl (10.1-14.3) 11/14/18 14:25 Hct 36.3 % (30.3-42.9) 11/14/18 14:25 MCV 83 fl (79-97) 11/14/18 14:25 MCH 28 pg (28-32) 11/14/18 14:25 MCHC 34 % (30-34) 11/14/18 14:25 RDW 18.9 % (13.2-15.2) H 11/14/18 14:25 Plt Count 283 K/mm3 (140-440) 11/14/18 14:25 PT 13.6 Sec. (12.2-14.9) 11/14/18 18:22 INR 1.07 (0.87-1.13) 11/14/18 18:22 APTT 27.5 Sec. (24.2-36.6) 11/14/18 18:22 Sodium 126 mmol/L (137-145) L 11/14/18 14:25 Potassium 4.2 mmol/L (3.6-5.0) 11/14/18 14:25 Chloride 91.2 mmol/L (98-107) L 11/14/18 14:25 Carbon Dioxide 14 mmol/L (22-30) L 11/14/18 14:25 25 mmol/L 11/14/18 14:25 BUN 4 mg/dL (7-17) L 11/14/18 14:25 0.5 mg/dL (0.7-1.2) L 11/14/18 14:25 Estimated GFR > 60 ml/min 11/14/18 14:25 8 % 11/14/18 14:25 Glucose 111 mg/dL (65-100) H 11/14/18 14:25 Calcium 8.5 mg/dL (8.4-10.2) 11/14/18 14:25 Magnesium 1.60 mg/dL (1.7-2.3) L 11/14/18 21:20 0.60 mg/dL (0.1-1.2) 11/14/18 18:22 < 0.2 mg/dL (0-0.2) 11/14/18 18:22 0.4 mg/dL 11/14/18 18:22 AST 130 units/L (5-40) H 11/14/18 18:22 ALT 61 units/L (7-56) H 11/14/18 18:22 91 units/L (35-129) 11/14/18 18:22 < 0.010 ng/mL (0.00-0.029) 11/14/18 18:22 7.6 g/dL (6.3-8.2) 11/14/18 18:22 4.2 g/dL (3.9-5) 11/14/18 18:22 1.2 % 11/14/18 18:22 111 units/L (13-60) H 11/14/18 18:22 Yellow (Yellow) 11/14/18 21:01 Clear (Clear) 11/14/18 21:01 6.0 (5.0-7.0) 11/14/18 21:01 Ur Specific [place]kin 1.017 (1.003-1.030) 11/14/18 21:01 30 mg/dl mg/dL (Negative) 11/14/18 21:01 Neg mg/dL (Negative) 11/14/18 21:01 Neg mg/dL (Negative) 11/14/18 21:01 Lg (Negative) 11/14/18 21:01 Neg (Negative) 11/14/18 21:01 Neg (Negative) 11/14/18 21:01 < 2.0 mg/dL (<2.0) 11/14/18 21:01 Ur Leukocyte Esterase Sm (Negative) 11/14/18 21:01 18.0 /HPF (0.0-6.0) H 11/14/18 21:01 3.0 /HPF (0.0-6.0) 11/14/18 21:01 U Epithel Cells (Auto) 1.0 /HPF (0-13.0) 11/14/18 21:01 Few /HPF 11/14/18 21:01 Presumptive positive 11/14/18 21:01 Presumptive negative 11/14/18 21:01 Ur Barbiturates Screen Presumptive negative 11/14/18 21:01 Ur Phencyclidine Scrn Presumptive negative 11/14/18 21:01 Ur Amphetamines Screen Presumptive negative 11/14/18 21:01 U Benzodiazepines Scrn Presumptive positive 11/14/18 21:01 Presumptive negative 11/14/18 21:01 U Marijuana (THC) Screen Presumptive negative 11/14/18 21:01 Plasma/Serum Alcohol < 0.01 % (0-0.07) 11/14/18 21:12 Assessment and Plan Assessment and plan: Intractable Nausea and Vomiting - in the setting of worsening Dyspepsia, Ddx include erosive esophagitis, PUD. Pt needs a gastroscopy. Of note pt is on chronic Tramadol use but no steroids or ASA - GI consult placed. PPI started IV. Carafate PO, IVF started - No signs of active GI bleeding Hypovolumic Hyponatremia - at 126 - with hemodynamic stability - IVF with D5NS - reassess in the am - associated metabolic acidosis is noted- moderate dehydration Debility - likely due to acute illness - rule out intravascular volume depletion - orthostatics ordered - PT/PT. check TSH - fall precautions MIld LFts - reactive and mild - reassess Incidental Pulmonary Nodules - discussed with pt and notified her of the need for surveillance - nothing to do at the moment. Hx of Seizures - pt thinks she may have had a seizure. nor her or Ex spouse have noted any seizures. - she is not on any antiepileptic meds. last Seizure was in 2017 per Ex. - continue Telemetry. I will not order an EEG.
--- NOTE | 2018-11-14 23:29 | XRay Report ---
CHEST 1 VIEW INDICATION / CLINICAL INFORMATION: sob. COMPARISON: CT abdomen/pelvis, 11/14/2018. No prior chest radiographs for comparison at this time FINDINGS: SUPPORT DEVICES: None. HEART / MEDIASTINUM: No significant abnormality. LUNGS / PLEURA: No significant pulmonary or pleural abnormality. No pneumothorax. ADDITIONAL FINDINGS: The pulmonary nodules identified in the right lung base on CT abdomen performed earlier today cannot be identified radiographically. IMPRESSION: 1. No acute findings. Signer Name: Naila Blancas MD Signed: 11/14/2018 11:25 PM Workstation Name: [id number]
[2018-11-15] MEDS: CARAFATE PO SCH ×4 (01:19→20:00)
[2018-11-15 05:54] LABS: Basophils % (Auto) 0.7 % (0.0-1.8); Eosinophils % (Auto) 1.3 % (0.0-4.3); Hematocrit 31.8 % (30.3-42.9); Hemoglobin 10.8 gm/dl (10.1-14.3); Lymphocytes # (Auto) 0.6 K/mm3 (1.2-5.4); Lymphocytes % (Auto) 20.7 % (13.4-35.0); Mean Corpuscular HGB Conc 34 % (30-34); Mean Corpuscular Volume 84 fl (79-97); Monocytes # (Auto) 0.4 K/mm3 (0.0-0.8); Monocytes % (Auto) 13.6 % (0.0-7.3); Platelet Count 217 K/mm3 (140-440); Red Blood Count 3.77 M/mm3 (3.65-5.03); Red Cell Distribution Width 19.4 % (13.2-15.2)
[2018-11-15 06:19] LABS: Alanine Aminotransferase 50 units/L (7-56); Albumin 3.6 g/dL (3.9-5); BUN/Creatinine Ratio 8; Bilirubin,Direct 0.4 mg/dL (0-0.2); Blood Urea Nitrogen 4 mg/dL (7-17); Calcium 8.2 mg/dL (8.4-10.2); Hemolysis Index 2
[2018-11-15] MEDS: D5NS 1,000 ML IV SCH (06:25)
[2018-11-15] MEDS ORDERED: PROTONIX PO SCH (10:00)
[2018-11-15] MEDS ORDERED: WELLBUTRIN SR PO SCH (10:00)
[2018-11-15] MEDS: LEVAQUIN 750MG/150ML 750 MG/150 ML BAG IV SCH (10:31)
[2018-11-15] MEDS: SODIUM CHLORIDE FLUSH SYRINGE 10 ML IV SCH (10:31)
[2018-11-15] MEDS: PROTONIX IV SCH ×2 (10:31→21:24)
[2018-11-15] MEDS: MORPHINE IV PRN ×3 (10:46→23:19)
--- NOTE | 2018-11-15 13:20 | Gastroenterology Consultation ---
History of Present Illness - Reason for Consult Consult date: 11/15/18 intractable N/V Requesting physician: JESSICA MOLINA - History of Present Illness Patient is a 58 y/o female with PMH of HTN, bipolar disorder, asthma, seizures, and PUD who presented to ED with multiple complaints to include intractable N/V with intability to tolerate PO, and intermittent upper abdominal pain (predominately in LUQ) to which GI has been consulted. Patient is previously known to our service from a hx of PUD in 2016 after undergoing an EGD. This morning patient was resting in bed w/o acute distress and family at bedside. She reports chronic intermittent LUQ abd pain for the past few years w/o change and N/V that has progressively became worse over the past week. Symptoms are e xacerbated with PO intake (both liquids and solid). Wt has been stable. Denies fever, CP, SOB, or signs of bleeding. Takes Goody's powder occasionally at home. Compliant with daily PPI. Past History Past Medical History: other (as per HPI) Social history: , lives with family, full code Family history: hypertension Medications and Allergies Allergies Allergy/AdvReac Type Severity Reaction Status Date / Time No Known Allergies Allergy Verified 08/06/18 12:43 Home Medications Medication Instructions Recorded Confirmed Last Taken Type Quetiapine Fumarate [QUEtiapine 400 mg PO QPM #10 tablet 12/11/15 11/14/18 U nknown Rx Fumarate] Xanax TAB 1 mg PO TID PRN #21 12/11/15 11/14/18 Unknown Rx traMADol [Ultram 50 MG tab] 50 mg PO Q6HR PRN #20 tablet 02/09/16 11/14/18 Unknown Rx Lisinopril [Zestril TAB] 10 mg PO QDAY 11/14/18 11/14/18 Unknown History Omeprazole 40 mg PO DAILY 11/14/18 11/14/18 Unknown History Tylenol /Codeine # 3 tab 1 tab PO Q6H 11/14/18 11/14/18 Unknown History buPROPion SR [Wellbutrin Sr] 150 mg PO QAM 11/14/18 11/14/18 Unknown History Active Meds: Active Medications Acetaminophen (Tylenol) 650 mg PO Q4H PRN PRN Reason: Pain MILD(1-3)/Fever >100.5/LINARES Al Hydrox/Mg Hydrox/Simethicone (Alum-Mag Hydrox-Simeth [phone]/5ml) 30 ml PO Q4H PRN PRN Reason: Indigestion Alprazolam (Xanax) 1 mg PO TID PRN PRN Reason: Anxiety Bupropion HCl (Wellbutrin Sr) 150 mg PO QAM [facility] Dextrose/Sodium Chloride (D5ns) 1,000 mls @ 100 mls/hr IV DIRECT [facility] Last Admin: 11/15/18 06:25 Dose: 100 mls/hr Documented by: Levofloxacin/Dextrose (Levaquin 750mg/150ml) 750 mg in 150 mls @ 100 mls/hr IV Q24HR [facility]; Protocol Last Admin: 11/15/18 10:31 Dose: 100 mls/hr Documented by: Lisinopril (Zestril) 10 mg PO QDAY [facility] Metoclopramide HCl (Reglan) 10 mg IV Q6H PRN PRN Reason: Nausea And Vomiting Morphine Sulfate (Morphine) 2 mg IV Q4H PRN PRN Reason: Pain, Moderate (4-6) Last Admin: 11/15/18 10:46 Dose: 2 mg Documented by: Ondansetron HCl (Zofran) 4 mg IV Q8H PRN PRN Reason: Nausea And Vomiting Oxycodone/Acetaminophen (Percocet 5/325) 1 tab PO Q6H PRN PRN Reason: Pain, Moderate (4-6) Last Admin: 11/15/18 06:27 Dose: 1 tab Documented by: Pantoprazole Sodium (Protonix) 40 mg IV BID [facility] Last Admin: 11/15/18 10:31 Dose: 40 mg Documented by: Quetiapine Fumarate (Seroquel) 400 mg PO QPM [facility] Last Admin: 11/14/18 23:54 Dose: 400 mg Documented by: Sodium Chloride (Sodium Chloride Flush Syringe 10 Ml) 10 ml IV BID [facility] Last Admin: 11/15/18 10:31 Dose: 10 ml Documented by: Sodium Chloride (Sodium Chloride Flush Syringe 10 Ml) 10 ml IV PRN PRN PRN Reason: LINE FLUSH Sucralfate (Carafate) 1 gm PO Q6HR [facility] Stop: 11/15/18 18:01 Last Admin: 11/15/18 06:25 Dose: 1 gm Documented by: Tramadol HCl (Ultram) 50 mg PO Q6H PRN PRN Reason: Pain medications reviewed/updated as required Review of Systems - Review of Systems All systems: negative Gastrointestinal: abdominal pain, nausea, vomiting Exam - Constitutional Vital Signs: Temp Pulse Resp BP Pulse Ox 97.5 F L 112 H 20 142/97 96 11/15/18 04:14 11/15/18 04:14 11/15/18 10:46 11/15/18 04:14 11/15/18 04:14 General appearance: no acute distress - EENT Eyes: PERRL, EOM intact ENT: hearing intact - Respiratory Respiratory effort: normal - Cardiovascular Rhythm: other (tachycardia) - Gastrointestinal General gastrointestinal: Present: soft, tender (slight TTP ), non-distended, normal bowel sounds - Neurologic Neurological: alert and oriented x3 - Labs CBC & Chem 7: 11/15/18 04:41 11/15/18 04:41 Lab Results: Laboratory Results - last 24 hr 11/14/18 11/14/18 11/14/18 14:25 14:25 18:22 WBC 3.6 L RBC 4.38 Hgb 12.3 Hct 36.3 MCV 83 MCH 28 MCHC 34 RDW 18.9 H Plt Count 283 Lymph % (Auto) Luce % (Auto) Eos % (Auto) Baso % (Auto) Lymph # Luce # Eos # Baso # Seg Neutrophils % Seg Neutrophils # PT INR APTT Sodium 126 L Potassium 4.2 Chloride 91.2 L Carbon Dioxide 14 L Anion Gap 25 BUN 4 L Creatinine 0.5 L Estimated GFR > 60 BUN/Creatinine Ratio 8 Glucose 111 H POC Glucose Calcium 8.5 Magnesium Total Bilirubin 0.60 Direct Bilirubin < 0.2 Indirect Bilirubin 0.4 AST 130 H ALT 61 H Alkaline Phosphatase 91 Troponin T < 0.010 Total Protein 7.6 Albumin 4.2 Albumin/Globulin Ratio 1.2 Lipase 111 H TSH Urine Color Urine Turbidity Urine pH Ur Specific [place] Urine Protein Urine Glucose (UA) Urine Ketones Urine Blood Urine Nitrite Urine Bilirubin Urine Urobilinogen Ur Leukocyte Esterase Urine WBC (Auto) Urine RBC (Auto) U Epithel Cells (Auto) Urine Mucus Urine Opiates Screen Urine Methadone Screen Ur Barbiturates Screen Ur Phencyclidine Scrn Ur Amphetamines Screen U Benzodiazepines Scrn Urine Cocaine Screen U Marijuana (THC) Screen Drugs of Abuse Note Plasma/Serum Alcohol 11/14/18 11/14/18 11/14/18 18:22 21:01 21:01 WBC RBC Hgb Hct MCV MCH MCHC RDW Plt Count Lymph % (Auto) Luce % (Auto) Eos % (Auto) Baso % (Auto) Lymph # Luce # Eos # Baso # Seg Neutrophils % Seg Neutrophils # PT 13.6 INR 1.07 APTT 27.5 Sodium Potassium Chloride Carbon Dioxide Anion Gap BUN Creatinine Estimated GFR BUN/Creatinine Ratio Glucose POC Glucose Calcium Magnesium Total Bilirubin Direct Bilirubin Indirect Bilirubin AST ALT Alkaline Phosphatase Troponin T Total Protein Albumin Albumin/Globulin Ratio Lipase TSH Urine Color Yellow Urine Turbidity Clear Urine pH 6.0 Ur Specific [place] 1.017 Urine Protein 30 mg/dl Urine Glucose (UA) Neg Urine Ketones Neg Urine Blood Lg Urine Nitrite Neg Urine Bilirubin Neg Urine Urobilinogen < 2.0 Ur Leukocyte Esterase Sm Urine WBC (Auto) 18.0 H Urine RBC (Auto) 3.0 U Epithel Cells (Auto) 1.0 Urine Mucus Few Urine Opiates Screen Presumptive positive Urine Methadone Screen Presumptive negative Ur Barbiturates Screen Presumptive negative Ur Phencyclidine Scrn Presumptive negative Ur Amphetamines Screen Presumptive negative U Benzodiazepines Scrn Presumptive positive Urine Cocaine Screen Presumptive negative U Marijuana (THC) Screen Presumptive negative Drugs of Abuse Note Disclamer Plasma/Serum Alcohol 11/14/18 11/14/18 11/15/18 21:12 21:20 04:41 WBC 3.1 L RBC 3.77 Hgb 10.8 Hct 31.8 MCV 84 MCH 29 MCHC 34 RDW 19.4 H Plt Count 217 Lymph % (Auto) 20.7 Luce % (Auto) 13.6 H Eos % (Auto) 1.3 Baso % (Auto) 0.7 Lymph # 0.6 L Luce # 0.4 Eos # 0.0 Baso # 0.0 Seg Neutrophils % 63.7 Seg Neutrophils # 2.0 PT INR APTT Sodium Potassium Chloride Carbon Dioxide Anion Gap BUN Creatinine Estimated GFR BUN/Creatinine Ratio Glucose POC Glucose Calcium Magnesium 1.60 L Total Bilirubin Direct Bilirubin Indirect Bilirubin AST ALT Alkaline Phosphatase Troponin T Total Protein Albumin Albumin/Globulin Ratio Lipase TSH Urine Color Urine Turbidity Urine pH Ur Specific [place] Urine Protein Urine Glucose (UA) Urine Ketones Urine Blood Urine Nitrite Urine Bilirubin Urine Urobilinogen Ur Leukocyte Esterase Urine WBC (Auto) Urine RBC (Auto) U Epithel Cells (Auto) Urine Mucus Urine Opiates Screen Urine Methadone Screen Ur Barbiturates Screen Ur Phencyclidine Scrn Ur Amphetamines Screen U Benzodiazepines Scrn Urine Cocaine Screen U Marijuana (THC) Screen Drugs of Abuse Note Plasma/Serum Alcohol < 0.01 11/15/18 11/15/18 11/15/18 04:41 04:41 06:39 WBC RBC Hgb Hct MCV MCH MCHC RDW Plt Count Lymph % (Auto) Luce % (Auto) Eos % (Auto) Baso % (Auto) Lymph # Luce # Eos # Baso # Seg Neutrophils % Seg Neutrophils # PT INR APTT Sodium 132 L Potassium 3.8 Chloride 97.7 L Carbon Dioxide 19 L Anion Gap 19 BUN 4 L Creatinine 0.5 L Estimated GFR > 60 BUN/Creatinine Ratio 8 Glucose 118 H POC Glucose 110 H Calcium 8.2 L Magnesium Total Bilirubin 0.80 Direct Bilirubin 0.4 H Indirect Bilirubin 0.4 AST 95 H ALT 50 Alkaline Phosphatase 78 Troponin T Total Protein 6.6 Albumin 3.6 L Albumin/Globulin Ratio 1.2 Lipase TSH 3.010 Urine Color Urine Turbidity Urine pH Ur Specific [place] Urine Protein Urine Glucose (UA) Urine Ketones Urine Blood Urine Nitrite Urine Bilirubin Urine Urobilinogen Ur Leukocyte Esterase Urine WBC (Auto) Urine RBC (Auto) U Epithel Cells (Auto) Urine Mucus Urine Opiates Screen Urine Methadone Screen Ur Barbiturates Screen Ur Phencyclidine Scrn Ur Amphetamines Screen U Benzodiazepines Scrn Urine Cocaine Screen U Marijuana (THC) Screen Drugs of Abuse Note Plasma/Serum Alcohol 11/15/18 11:40 WBC RBC Hgb Hct MCV MCH MCHC RDW Plt Count Lymph % (Auto) Luce % (Auto) Eos % (Auto) Baso % (Auto) Lymph # Luce # Eos # Baso # Seg Neutrophils % Seg Neutrophils # PT INR APTT Sodium Potassium Chloride Carbon Dioxide Anion Gap BUN Creatinine Estimated GFR BUN/Creatinine Ratio Glucose POC Glucose 117 H Calcium Magnesium Total Bilirubin Direct Bilirubin Indirect Bilirubin AST ALT Alkaline Phosphatase Troponin T Total Protein Albumin Albumin/Globulin Ratio Lipase TSH Urine Color Urine Turbidity Urine pH Ur Specific [place] Urine Protein Urine Glucose (UA) Urine Ketones Urine Blood Urine Nitrite Urine Bilirubin Urine Urobilinogen Ur Leukocyte Esterase Urine WBC (Auto) Urine RBC (Auto) U Epithel Cells (Auto) Urine Mucus Urine Opiates Screen Urine Methadone Screen Ur Barbiturates Screen Ur Phencyclidine Scrn Ur Amphetamines Screen U Benzodiazepines Scrn Urine Cocaine Screen U Marijuana (THC) Screen Drugs of Abuse Note Plasma/Serum Alcohol Assessment and Plan 1.intractable N/V 2.LUQ abdominal pain (intermittent; chronic) 3.H/o PUD -afebrile -WBC 3.1 -H/H WNL- no signs of bleeding -LFTs- T.cornel 0.80, AST 95, ALT 50, alk phos 78 -abd CT showed mildly dilated segment of small bowel at LUQ (likely incidental) but no obstruction or localized inflammation -EGD 2015 revealed a gastric ulcer and small hiatal hernia -etiology-possibly related to ulcer vs GB disease vs other -will schedule for EGD today for further evaluation (r/o GOO) -Keep NPO for now -abdominal U/S -continue PPI and supportive care -further recommendations pending on EGD results
[2018-11-15] MEDS ORDERED: NACL 0.9% 1000 ML 1,000 ML ONE (14:06)
[2018-11-15] MEDS ORDERED: ZOFRAN IV ONE (14:18)
[2018-11-15] MEDS: ZOFRAN IV PRN ×2 (14:25→21:24)
[2018-11-15] MEDS ORDERED: DIPRIVAN 10 MG/ML IV ONE (14:33)
[2018-11-15] MEDS ORDERED: QUELICIN ONE (14:35)
--- NOTE | 2018-11-15 14:45 | Anesthesia Consultation ---
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
[2018-11-15] MEDS ORDERED: NACL 0.9% 1000 ML 1,000 ML IV SCH (15:00)
--- NOTE | 2018-11-15 15:01 | Progress Note ---
Assessment and Plan Assessment and plan: Intractable Nausea and Vomiting - GI consult placed. PPI started IV. Carafate PO, IVF started - No signs of active GI bleeding Hypovolumic Hyponatremia - with hemodynamic stability - IVF with D5NS - reassess in the am - associated metabolic acidosis is noted- moderate dehydration Debility - likely due to acute illness - rule out intravascular volume depletion - orthostatics ordered - PT/PT. check TSH - fall precautions MIld LFts - reactive and mild - reassess Incidental Pulmonary Nodules - discussed with pt and notified her of the need for surveillance - nothing to do at the moment. Hx of Seizures - pt thinks she may have had a seizure. nor her or Ex spouse have noted any seizures. - she is not on any antiepileptic meds. last Seizure was in 2017 per Ex. Bipolar disorder, anxiety disorder - Home medications reconciled History Interval history: Patient was seen and evaluated this morning, patient's abdominal pain is getting better, she didn't have any vomiting this morning. Hospitalist Physical - Physical exam Narrative exam: Not in cardiopulmonary distress. The patient appeared well nourished and normally developed. Vital signs as documented. Head exam is unremarkable. No scleral icterus . Neck is without jugular venous distension, thyromegaly, or carotid bruits. Lungs are clear to auscultation. Cardiac exam reveals regular rate and Rhythm. First and second heart sounds normal. No murmurs, rubs or gallops. Abdominal exam reveals normal bowel sounds, no masses, no organomegaly and no aortic enlargement. Extremities are nonedematous and both femoral and pedal pulses are normal. 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 No focal weakness. - Constitutional Vitals: Temp Pulse Resp BP Pulse Ox 97.9 F 95 H 17 149/99 96 11/15/18 14:02 11/15/18 14:02 11/15/18 14:02 11/15/18 14:02 11/15/18 14:02 General appearance: Present: no acute distress, well-nourished Results - Labs CBC & Chem 7: 11/15/18 04:41 11/15/18 04:41 Labs: Laboratory Last Values WBC 3.1 K/mm3 (4.5-11.0) L 11/15/18 04:41 RBC 3.77 M/mm3 (3.65-5.03) 11/15/18 04:41 Hgb 10.8 gm/dl (10.1-14.3) 11/15/18 04:41 Hct 31.8 % (30.3-42.9) 11/15/18 04:41 MCV 84 fl (79-97) 11/15/18 04:41 MCH 29 pg (28-32) 11/15/18 04:41 MCHC 34 % (30-34) 11/15/18 04:41 RDW 19.4 % (13.2-15.2) H 11/15/18 04:41 Plt Count 217 K/mm3 (140-440) 11/15/18 04:41 Lymph % (Auto) 20.7 % (13.4-35.0) 11/15/18 04:41 [place] % (Auto) 13.6 % (0.0-7.3) H 11/15/18 04:41 Eos % (Auto) 1.3 % (0.0-4.3) 11/15/18 04:41 Baso % (Auto) 0.7 % (0.0-1.8) 11/15/18 04:41 Lymph # 0.6 K/mm3 (1.2-5.4) L 11/15/18 04:41 [place] # 0.4 K/mm3 (0.0-0.8) 11/15/18 04:41 Eos # 0.0 K/mm3 (0.0-0.4) 11/15/18 04:41 Baso # 0.0 K/mm3 (0.0-0.1) 11/15/18 04:41 Seg Neutrophils % 63.7 % (40.0-70.0) 11/15/18 04:41 Seg Neutrophils # 2.0 K/mm3 (1.8-7.7) 11/15/18 04:41 PT 13.6 Sec. (12.2-14.9) 11/14/18 18:22 INR 1.07 (0.87-1.13) 11/14/18 18:22 APTT 27.5 Sec. (24.2-36.6) 11/14/18 18:22 Sodium 132 mmol/L (137-145) L 11/15/18 04:41 Potassium 3.8 mmol/L (3.6-5.0) 11/15/18 04:41 Chloride 97.7 mmol/L (98-107) L 11/15/18 04:41 Carbon Dioxide 19 mmol/L (22-30) L 11/15/18 04:41 19 mmol/L 11/15/18 04:41 BUN 4 mg/dL (7-17) L 11/15/18 04:41 0.5 mg/dL (0.7-1.2) L 11/15/18 04:41 Estimated GFR > 60 ml/min 11/15/18 04:41 8 % 11/15/18 04:41 Glucose 118 mg/dL (65-100) H 11/15/18 04:41 POC Glucose 117 (70-105) H 11/15/18 11:40 Calcium 8.2 mg/dL (8.4-10.2) L 11/15/18 04:41 Magnesium 1.60 mg/dL (1.7-2.3) L 11/14/18 21:20 0.80 mg/dL (0.1-1.2) 11/15/18 04:41 0.4 mg/dL (0-0.2) H 11/15/18 04:41 0.4 mg/dL 11/15/18 04:41 AST 95 units/L (5-40) H 11/15/18 04:41 ALT 50 units/L (7-56) 11/15/18 04:41 78 units/L (35-129) 11/15/18 04:41 < 0.010 ng/mL (0.00-0.029) 11/14/18 18:22 6.6 g/dL (6.3-8.2) 11/15/18 04:41 3.6 g/dL (3.9-5) L 11/15/18 04:41 1.2 % 11/15/18 04:41 111 units/L (13-60) H 11/14/18 18:22 TSH 3.010 mlU/mL (0.270-4.200) 11/15/18 04:41 Yellow (Yellow) 11/14/18 21:01 Clear (Clear) 11/14/18 21:01 6.0 (5.0-7.0) 11/14/18 21:01 Ur Specific [place] 1.017 (1.003-1.030) 11/14/18 21:01 30 mg/dl mg/dL (Negative) 11/14/18 21:01 Neg mg/dL (Negative) 11/14/18 21:01 Neg mg/dL (Negative) 11/14/18 21:01 Lg (Negative) 11/14/18 21:01 Neg (Negative) 11/14/18 21:01 Neg (Negative) 11/14/18 21:01 < 2.0 mg/dL (<2.0) 11/14/18 21:01 Ur Leukocyte Esterase Sm (Negative) 11/14/18 21:01 18.0 /HPF (0.0-6.0) H 11/14/18 21:01 3.0 /HPF (0.0-6.0) 11/14/18 21:01 U Epithel Cells (Auto) 1.0 /HPF (0-13.0) 11/14/18 21:01 Few /HPF 11/14/18 21:01 Presumptive positive 11/14/18 21:01 Presumptive negative 11/14/18 21:01 Ur Barbiturates Screen Presumptive negative 11/14/18 21:01 Ur Phencyclidine Scrn Presumptive negative 11/14/18 21:01 Ur Amphetamines Screen Presumptive negative 11/14/18 21:01 U Benzodiazepines Scrn Presumptive positive 11/14/18 21:01 Presumptive negative 11/14/18 21:01 U Marijuana (THC) Screen Presumptive negative 11/14/18 21:01 Disclamer 11/14/18 21:01 Plasma/Serum Alcohol < 0.01 % (0-0.07) 11/14/18 21:12 Active Medications - Current Medications Current Medications: Generic Name Dose Route Start Last Admin Trade Name Freq PRN Reason Stop Dose Admin Acetaminophen 650 mg 11/14/18 22:22 Tylenol PO Q4H PRN Pain MILD(1-3)/Fever >100.5/LINARES Al Hydrox/Mg Hydrox/Simethicone 30 ml 11/14/18 22:22 Alum-Mag Hydrox-Simeth [id number]/5ml PO Q4H PRN Indigestion Alprazolam 1 mg 11/14/18 22:34 Xanax PO TID PRN Anxiety Bupropion HCl 150 mg 11/15/18 10:00 Wellbutrin Sr PO QAM [facility] Dextrose/Sodium Chloride 1,000 mls @ 100 mls/hr 11/14/18 23:00 11/15/18 06:25 D5ns IV 100 mls/hr DIRECT [facility] Administration Levofloxacin/Dextrose 750 mg in 150 mls @ 100 mls/hr 11/15/18 10:00 11/15/18 10:31 Levaquin 750mg/150ml IV 100 mls/hr Q24HR [facility] Administration Protocol Sodium Chloride 1,000 mls @ 50 mls/hr 11/15/18 15:00 Nacl 0.9% 1000 Ml IV DIRECT [facility] Lisinopril 10 mg 11/15/18 10:00 Zestril PO QDAY [facility] Metoclopramide HCl 10 mg 11/14/18 21:13 Reglan IV Q6H PRN Nausea And Vomiting Morphine Sulfate 2 mg 11/14/18 22:22 11/15/18 10:46 Morphine IV 2 mg Q4H PRN Administration Pain, Moderate (4-6) Ondansetron HCl 4 mg 11/14/18 22:22 11/15/18 14:25 Zofran IV 4 mg Q8H PRN Administration Nausea And Vomiting Oxycodone/Acetaminophen 1 tab 11/14/18 22:22 11/15/18 06:27 Percocet 5/325 PO 1 tab Q6H PRN Administration Pain, Moderate (4-6) Pantoprazole Sodium 40 mg 11/14/18 22:00 11/15/18 10:31 Protonix IV 40 mg BID [facility] Administration Quetiapine Fumarate 400 mg 11/14/18 23:00 11/14/18 23:54 Seroquel PO 400 mg QPM [facility] Administration Sodium Chloride 10 ml 11/15/18 10:00 11/15/18 10:31 Sodium Chloride Flush Syringe 10 Ml IV 10 ml BID [facility] Administration Sodium Chloride 10 ml 11/14/18 22:22 Sodium Chloride Flush Syringe 10 Ml IV PRN PRN LINE FLUSH Sucralfate 1 gm 11/15/18 00:00 11/15/18 06:25 Carafate PO 11/15/18 18:01 1 gm Q6HR [facility] Administration Tramadol HCl 50 mg 11/14/18 22:34 Ultram PO Q6H PRN Pain
--- NOTE | 2018-11-15 15:36 | Ultrasound Report ---
ABDOMINAL ULTRASOUND HISTORY: Nausea and vomiting COMPARISON: CT abdomen pelvis with contrast dated 11/14/2018 TECHNIQUE: Multiple real-time ultrasonographic grayscale images were obtained of the abdomen. FINDINGS: Aorta: No significant abnormality. The proximal aorta measures 2.3 cm in diameter. IVC: Obscured by poor acoustic windows Pancreas: Partially obscured by poor acoustic windows. Visualized portions without significant abnor mality. Liver: Moderate diffuse fatty infiltration of the liver is identified. No enlargement or focal mass. Gallbladder: Trace sludge in the gallbladder is identified. No shadowing gallstones. Common bile duct: 5 mm. Right kidney: No significant abnormality. No hydronephrosis. Kidney measures 10.2 cm. Spleen: Normal size and appearance measuring 12.9 cm in length. Left kidney: No significant abnormality. No hydronephrosis. Kidney measures 11.9 cm. Additional findings: No ascites. IMPRESSION: Moderate diffuse fatty infiltration of the liver. Trace sludge in the gallbladder. Signer Name: Mode Kohler Jr, MD Signed: 11/15/2018 3:32 PM Workstation Name: [id number]
[2018-11-15] MEDS: ZESTRIL PO SCH (20:00)
[2018-11-15] MEDS ORDERED: APRESOLINE IV PRN (23:07)
[2018-11-15] MEDS ORDERED: ATIVAN IV ONE (23:27)
[2018-11-15] MEDS ORDERED: ATIVAN PO PRN (23:43)
--- NOTE | 2018-11-15 23:50 | Event Note ---
Code MET was called Nurses were concerned the patient appeared agitated and had some tremors of extremities. Patient was awake the whole time, denies loss of consciousness, admits to fee ling very anxious, has not had her Xanax because she has been nothing by mouth and NG suction., She typically needed anywhere from 2-3 times a day -Discussed with nursing staff, they said there was some tremors in her extremities, but no loss of consciousness no convulsions, no loss of bowel function or incontinence. -Her symptoms are consistent with anxiety, and not a seizure. vitals show elevated BP 150/100, HR 130 General.: Appears well, no distress, nontoxic HEENT: Moist mucous membranes, extraocular muscles intact, no lymphadenopathy Neck: supple Cardiac: S1-S2 heard Lungs: clear to auscultation bilaterally Abdomen: soft , nontender, nondistended, bowel sounds positive Extremities: no edema clubbing or cyanosis Skin: no rash or lesions Neurologic: no gross focal deficits Psych: Patient is very anxious, cooperative -Patient medicated with Ativan as needed, the rest of her medications were reviewed, and necessary meds which changed to IV as needed -Hypertensive urgency noted, hydralazine IV when necessary -Continue Protonix IV twice a day -anxiety disorder -Patient had intractable nausea and vomiting, currently on NG suction, IV fluids running, plan for a G-tube in the morning
[2018-11-16] MEDS: SODIUM CHLORIDE FLUSH SYRINGE 10 ML IV SCH ×3 (00:40→21:25)
[2018-11-16] MEDS: MORPHINE IV PRN ×4 (05:43→17:34)
[2018-11-16 07:49] LABS: Basophils % (Auto) 0.5 % (0.0-1.8); Eosinophils % (Auto) 0.7 % (0.0-4.3); Hematocrit 33.2 % (30.3-42.9); Hemoglobin 11.3 gm/dl (10.1-14.3); Lymphocytes # (Auto) 0.5 K/mm3 (1.2-5.4); Lymphocytes % (Auto) 14.8 % (13.4-35.0); Mean Corpuscular HGB Conc 34 % (30-34); Mean Corpuscular Volume 84 fl (79-97); Monocytes # (Auto) 0.6 K/mm3 (0.0-0.8); Platelet Count 228 K/mm3 (140-440); Red Blood Count 3.94 M/mm3 (3.65-5.03); Red Cell Distribution Width 18.6 % (13.2-15.2)
[2018-11-16 08:16] LABS: BUN/Creatinine Ratio 8; Blood Urea Nitrogen 4 mg/dL (7-17); Calcium 8.8 mg/dL (8.4-10.2); Hemolysis Index 8
[2018-11-16] MEDS ORDERED: CHLORASEPTIC MM PRN (08:22)
--- NOTE | 2018-11-16 09:17 | XRay Report ---
ABDOMEN 1 VIEW 8:35 AM INDICATION / CLINICAL INFORMATION: Nausea and vomiting. COMPARISON: None available. FINDINGS: TUBES / LINES: There is a nasogastric tube with the tip overlying the proximal stomach and the proxim al sidehole near the gastroesophageal junction. BOWEL GAS PATTERN: There is no evidence of bowel obstruction or mass effect. FREE AIR / EXTRALUMINAL GAS: None seen. ADDITIONAL FINDINGS: There is moderate spondylosis. IMPRESSION: No acute abnormality. The nasogastric tube should be advanced further into the stomach. Signer Name: Cassius Montana MD Signed: 11/16/2018 9:12 AM Workstation Name: [id number]
[2018-11-16] MEDS ORDERED: DIPRIVAN 10 MG/ML IV ONE (09:19)
[2018-11-16] MEDS: PROTONIX IV SCH ×2 (09:38→21:25)
[2018-11-16] MEDS: LEVAQUIN 750MG/150ML 750 MG/150 ML BAG IV SCH (09:41)
[2018-11-16] MEDS: ATIVAN IV PRN ×2 (09:41→16:03)
[2018-11-16] MEDS: ZOFRAN IV PRN (11:34)
[2018-11-16] MEDS: D5NS 1,000 ML IV SCH ×2 (11:36→13:53)
[2018-11-16] MEDS: KCL 10MEQ/100ML 10 MEQ/100 ML BAG IV SCH ×4 (12:00→19:46)
[2018-11-16] MEDS ORDERED: NACL 0.9% 1000 ML 1,000 ML IV SCH (12:00)
[2018-11-16] MEDS ORDERED: WATER FOR IRRIG STERILE IR ONE (12:23)
--- NOTE | 2018-11-16 12:37 | Progress Note ---
Assessment and Plan Assessment and plan: Intractable Nausea and Vomiting - IV Protonix, symptomatic treatment - GI consulted and tried to do EGD yesterday but the patient had intractable nausea and vomiting couldn't do it. She was on NG tube feeding and drained out about 600 mL of dark fluid which since yesterday. Per the nurse the 400ml is from yesterday and overnight she had 200 mL of dark fluid. -Discussed with GI and site is okay to cramp and give her by mouth medications, patient will have EGD in the afternoon Hypovolumic Hyponatremia - corrected with D5NS Debility - likely due to acute illness - PT/PT. TSH normal - fall precautions Mild LFts - getting better Incidental Pulmonary Nodules - discussed with pt and notified her of the need for surveillance - nothing to do at the moment. Hx of Seizures - pt thinks she may have had a seizure. nor her or Ex spouse have noted any seizures. - she is not on any antiepileptic meds. last Seizure was in 2017 per Ex. Bipolar disorder, anxiety disorder - Home medications reconciled History Interval history: Patient was seen and evaluated this morning, code met was called overnight, i believe it is due to panic attack. Hospitalist Physical - Physical exam Narrative exam: Not in cardiopulmonary distress. Patient has NG tube in place The patient appeared well nourished and normally developed. Vital signs as documented. Head exam is unremarkable. No scleral icterus . Neck is without jugular venous distension, thyromegaly, or carotid bruits. Lungs are clear to auscultation. Cardiac exam reveals regular rate and Rhythm. First and second heart sounds normal. No murmurs, rubs or gallops. Abdominal exam reveals normal bowel sounds, no masses, no organomegaly and no aortic enlargement. Extremities are nonedematous and both femoral and pedal pulses are normal. 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 No focal weakness. - Constitutional Vitals: Temp Pulse Resp BP Pulse Ox 96.8 F L 106 H 20 156/88 96 11/16/18 07:05 11/16/18 07:05 11/16/18 07:05 11/16/18 07:05 11/16/18 07:05 General appearance: Present: no acute distress, well-nourished Results - Labs CBC & Chem 7: 11/16/18 06:59 11/16/18 06:59 Labs: Laboratory Last Values WBC 3.5 K/mm3 (4.5-11.0) L 11/16/18 06:59 RBC 3.94 M/mm3 (3.65-5.03) 11/16/18 06:59 Hgb 11.3 gm/dl (10.1-14.3) 11/16/18 06:59 Hct 33.2 % (30.3-42.9) 11/16/18 06:59 MCV 84 fl (79-97) 11/16/18 06:59 MCH 29 pg (28-32) 11/16/18 06:59 MCHC 34 % (30-34) 11/16/18 06:59 RDW 18.6 % (13.2-15.2) H 11/16/18 06:59 Plt Count 228 K/mm3 (140-440) 11/16/18 06:59 Lymph % (Auto) 14.8 % (13.4-35.0) 11/16/18 06:59 [place] % (Auto) 16.0 % (0.0-7.3) H 11/16/18 06:59 Eos % (Auto) 0.7 % (0.0-4.3) 11/16/18 06:59 Baso % (Auto) 0.5 % (0.0-1.8) 11/16/18 06:59 Lymph # 0.5 K/mm3 (1.2-5.4) L 11/16/18 06:59 [place] # 0.6 K/mm3 (0.0-0.8) 11/16/18 06:59 Eos # 0.0 K/mm3 (0.0-0.4) 11/16/18 06:59 Baso # 0.0 K/mm3 (0.0-0.1) 11/16/18 06:59 Seg Neutrophils % 68.0 % (40.0-70.0) 11/16/18 06:59 Seg Neutrophils # 2.4 K/mm3 (1.8-7.7) 11/16/18 06:59 PT 13.6 Sec. (12.2-14.9) 11/14/18 18:22 INR 1.07 (0.87-1.13) 11/14/18 18:22 APTT 27.5 Sec. (24.2-36.6) 11/14/18 18:22 Sodium 138 mmol/L (137-145) 11/16/18 06:59 Potassium 3.3 mmol/L (3.6-5.0) L 11/16/18 06:59 Chloride 102.3 mmol/L (98-107) 11/16/18 06:59 Carbon Dioxide 20 mmol/L (22-30) L 11/16/18 06:59 19 mmol/L 11/16/18 06:59 BUN 4 mg/dL (7-17) L 11/16/18 06:59 0.5 mg/dL (0.7-1.2) L 11/16/18 06:59 Estimated GFR > 60 ml/min 11/16/18 06:59 8 % 11/16/18 06:59 Glucose 118 mg/dL (65-100) H 11/16/18 06:59 POC Glucose 123 (70-105) H 11/16/18 11:32 Calcium 8.8 mg/dL (8.4-10.2) 11/16/18 06:59 Magnesium 1.60 mg/dL (1.7-2.3) L 11/14/18 21:20 0.80 mg/dL (0.1-1.2) 11/15/18 04:41 0.4 mg/dL (0-0.2) H 11/15/18 04:41 0.4 mg/dL 11/15/18 04:41 AST 95 units/L (5-40) H 11/15/18 04:41 ALT 50 units/L (7-56) 11/15/18 04:41 78 units/L (35-129) 11/15/18 04:41 < 0.010 ng/mL (0.00-0.029) 11/14/18 18:22 6.6 g/dL (6.3-8.2) 11/15/18 04:41 3.6 g/dL (3.9-5) L 11/15/18 04:41 1.2 % 11/15/18 04:41 111 units/L (13-60) H 11/14/18 18:22 TSH 3.010 mlU/mL (0.270-4.200) 11/15/18 04:41 Yellow (Yellow) 11/14/18 21:01 Clear (Clear) 11/14/18 21:01 6.0 (5.0-7.0) 11/14/18 21:01 Ur Specific [place] 1.017 (1.003-1.030) 11/14/18 21:01 30 mg/dl mg/dL (Negative) 11/14/18 21:01 Neg mg/dL (Negative) 11/14/18 21:01 Neg mg/dL (Negative) 11/14/18 21:01 Lg (Negative) 11/14/18 21:01 Neg (Negative) 11/14/18 21:01 Neg (Negative) 11/14/18 21:01 < 2.0 mg/dL (<2.0) 11/14/18 21:01 Ur Leukocyte Esterase Sm (Negative) 11/14/18 21:01 18.0 /HPF (0.0-6.0) H 11/14/18 21:01 3.0 /HPF (0.0-6.0) 11/14/18 21:01 U Epithel Cells (Auto) 1.0 /HPF (0-13.0) 11/14/18 21:01 Few /HPF 11/14/18 21:01 Presumptive positive 11/14/18 21:01 Presumptive negative 11/14/18 21:01 Ur Barbiturates Screen Presumptive negative 11/14/18 21:01 Ur Phencyclidine Scrn Presumptive negative 11/14/18 21:01 Ur Amphetamines Screen Presumptive negative 11/14/18 21:01 U Benzodiazepines Scrn Presumptive positive 11/14/18 21:01 Presumptive negative 11/14/18 21:01 U Marijuana (THC) Screen Presumptive negative 11/14/18 21:01 Disclamer 11/14/18 21:01 Plasma/Serum Alcohol < 0.01 % (0-0.07) 11/14/18 21:12 Active Medications - Current Medications Current Medications: Generic Name Dose Route Start Last Admin Trade Name Freq PRN Reason Stop Dose Admin Acetaminophen 650 mg 11/14/18 22:22 Tylenol PO Q4H PRN Pain MILD(1-3)/Fever >100.5/LINARES Al Hydrox/Mg Hydrox/Simethicone 30 ml 11/14/18 22:22 Alum-Mag Hydrox-Simeth 081-191-28rq/5ml PO Q4H PRN Indigestion Bupropion HCl 150 mg 11/15/18 10:00 11/15/18 16:48 Wellbutrin Sr PO 150 mg QAM WALDO Administration Hydralazine HCl 10 mg 11/15/18 23:07 Apresoline IV Q4H PRN BP >160/100 Dextrose/Sodium Chloride 1,000 mls @ 100 mls/hr 11/14/18 23:00 11/16/18 11:36 D5ns IV 100 mls/hr DIRECT WALDO Administration Levofloxacin/Dextrose 750 mg in 150 mls @ 100 mls/hr 11/15/18 10:00 11/16/18 09:41 Levaquin 750mg/150ml IV 100 mls/hr Q24HR WALDO Administration Protocol Sodium Chloride 1,000 mls @ 50 mls/hr 11/15/18 15:00 11/15/18 17:33 Nacl 0.9% 1000 Ml IV 50 mls/hr DIRECT WALDO Administration Potassium Chloride 10 meq in 100 mls @ 100 mls/hr 11/16/18 10:00 Kcl 10meq/100ml IV 11/16/18 13:59 Q1H WALDO Sodium Chloride 1,000 mls @ 50 mls/hr 11/16/18 12:00 Nacl 0.9% 1000 Ml IV DIRECT WALDO Lisinopril 10 mg 11/15/18 10:00 11/15/18 20:00 Zestril PO 10 mg QDAY WALDO Administration Lorazepam 1 mg 11/16/18 09:04 11/16/18 09:41 Ativan IV 1 mg Q4H PRN Administration Agitation Metoclopramide HCl 10 mg 11/14/18 21:13 11/15/18 19:58 Reglan IV 10 mg Q6H PRN Administration Nausea And Vomiting Morphine Sulfate 2 mg 11/14/18 22:22 11/16/18 09:39 Morphine IV 2 mg Q4H PRN Administration Pain, Moderate (4-6) Ondansetron HCl 4 mg 11/14/18 22:22 11/16/18 11:34 Zofran IV 4 mg Q8H PRN Administration Nausea And Vomiting Pantoprazole Sodium 40 mg 11/14/18 22:00 11/16/18 09:38 Protonix IV 40 mg BID WALDO Administration Phenol 1 spray 11/16/18 08:22 Chloraseptic MM PRN PRN Sore Throat Quetiapine Fumarate 400 mg 11/14/18 23:00 11/15/18 17:32 Seroquel PO 400 mg QPM WALDO Administration Sodium Chloride 10 ml 11/15/18 10:00 11/16/18 09:39 Sodium Chloride Flush Syringe 10 Ml IV 10 ml BID WALDO Administration Sodium Chloride 10 ml 11/14/18 22:22 Sodium Chloride Flush Syringe 10 Ml IV PRN PRN LINE FLUSH
--- NOTE | 2018-11-16 14:31 | Anesthesia Day of Surgery ---
Anesthesia Day of Surgery - Day of Surgery Patient Examined: Yes Patient H&P Reviewed: Yes Patient is NPO: Yes
--- NOTE | 2018-11-16 15:19 | Operative Report ---
Operative Report Operative Report: Esophagogastroduodenoscopy Procedure Note Date of procedure: 11/16/2018 Endoscopist: Og Dalal MD Pre-op diagnosis: nausea/vomiting Post-op diagnosis: gastritis, a hiatal hernia Anesthesia: MAC Complications: No immediate complications Estimated blood loss: None Procedure: After consent was obtained, the patient was placed in the left lateral decubitus position. The olympus endoscope was inserted into the patient's mouth under direct vision, and advanced into the 2nd portion of the duodenum without difficulty. The patient tolerated the procedure well. The views of the mucosa were good. Patient's vital signs were monitored continuously throughout the procedure. Findings: The esophagus showed a moderate size hiatal hernia. No signs of esophagitis or bleeding. . Exam of the stomach showed severe gastritis in the mid gastric body without bleeding. The antrum showed erythematous mucosa and edema. No definite signs of gastric ulcers noted. Biopsies were obtained from the antrum and the body. Retroflexion was performed. Cardia, and fundus appeared normal. The examined part of the duodenum appeared normal. Impression: 1. Severe gastritis in the gastric body. 2. Antral gastritis. Bx from antrum and body obtained. 3. A moderate size hiatal hernia 4. Normal duodenum in the examined portion. 5. No signs of gastric outlet obstruction. Recommendations: - Continue with PPI. - resume diet with clear liquid diet. - Can start carafate if continues to have symptoms. - will follow.
[2018-11-16] MEDS: ZESTRIL PO SCH (19:47)
[2018-11-17] MEDS: D5NS 1,000 ML IV SCH ×3 (04:39→23:23)
[2018-11-17 06:27] LABS: BUN/Creatinine Ratio 10; Blood Urea Nitrogen 5 mg/dL (7-17); Calcium 8.4 mg/dL (8.4-10.2); Hemolysis Index 8
[2018-11-17] MEDS ORDERED: MAGNESIUM SULFATE 2GM/50ML 2 GM/50 ML BAG IV ONE (07:30)
[2018-11-17] MEDS ORDERED: K-DUR PO ONE (07:30)
[2018-11-17] MEDS: XANAX PO PRN ×2 (09:29→17:56)
[2018-11-17] MEDS: ZESTRIL PO SCH (09:29)
[2018-11-17] MEDS: PROTONIX PO SCH ×2 (09:29→21:03)
[2018-11-17] MEDS: SODIUM CHLORIDE FLUSH SYRINGE 10 ML IV SCH ×2 (09:29→22:45)
[2018-11-17] MEDS: WELLBUTRIN SR PO SCH ×2 (09:29→21:04)
[2018-11-17] MEDS: MORPHINE IV PRN ×2 (09:29→17:55)
--- NOTE | 2018-11-17 09:58 | Progress Note ---
Assessment and Plan Assessment and plan: Intractable Nausea and Vomiting - IV Protonix, symptomatic treatment - GI consulted and EGD was done and showed severe gastritis Hypovolumic Hyponatremia - corrected with D5NS Debility - likely due to acute illness - PT/PT. TSH normal - fall precautions Mild LFts - getting better Incidental Pulmonary Nodules - discussed with pt and notified her of the need for surveillance - nothing to do at the moment. Hx of Seizures - pt thinks she may have had a seizure. nor her or Ex spouse have noted any seizures. - she is not on any antiepileptic meds. last Seizure was in 2017 per Ex. Bipolar disorder, anxiety disorder - Home medications reconciled Disposition; patient is feeling dizzy when when she tried to stand up. History Interval history: Patient was seen and evaluated this morning, she said she is feeling dizzy when she tried to stand up otherwise the patient didn't have abdominal pain, N/V, tolerated her diet. Hospitalist Physical - Physical exam Narrative exam: Not in cardiopulmonary distress. Patient has NG tube in place The patient appeared well nourished and normally developed. Vital signs as documented. Head exam is unremarkable. No scleral icterus . Neck is without jugular venous distension, thyromegaly, or carotid bruits. Lungs are clear to auscultation. Cardiac exam reveals regular rate and Rhythm. First and second heart sounds normal. No murmurs, rubs or gallops. Abdominal exam reveals normal bowel sounds, no masses, no organomegaly and no aortic enlargement. Extremities are nonedematous and both femoral and pedal pulses are normal. 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 No focal weakness. - Constitutional Vitals: Temp Pulse Resp BP Pulse Ox 98.3 F 98 H 20 142/102 94 11/17/18 05:14 11/17/18 05:14 11/17/18 05:14 11/17/18 05:14 11/17/18 05:14 General appearance: Present: no acute distress, well-nourished Results - Labs CBC & Chem 7: 11/16/18 06:59 11/17/18 05:24 Labs: Laboratory Last Values WBC 3.5 K/mm3 (4.5-11.0) L 11/16/18 06:59 RBC 3.94 M/mm3 (3.65-5.03) 11/16/18 06:59 Hgb 11.3 gm/dl (10.1-14.3) 11/16/18 06:59 Hct 33.2 % (30.3-42.9) 11/16/18 06:59 MCV 84 fl (79-97) 11/16/18 06:59 MCH 29 pg (28-32) 11/16/18 06:59 MCHC 34 % (30-34) 11/16/18 06:59 RDW 18.6 % (13.2-15.2) H 11/16/18 06:59 Plt Count 228 K/mm3 (140-440) 11/16/18 06:59 Lymph % (Auto) 14.8 % (13.4-35.0) 11/16/18 06:59 [place] % (Auto) 16.0 % (0.0-7.3) H 11/16/18 06:59 Eos % (Auto) 0.7 % (0.0-4.3) 11/16/18 06:59 Baso % (Auto) 0.5 % (0.0-1.8) 11/16/18 06:59 Lymph # 0.5 K/mm3 (1.2-5.4) L 11/16/18 06:59 [place] # 0.6 K/mm3 (0.0-0.8) 11/16/18 06:59 Eos # 0.0 K/mm3 (0.0-0.4) 11/16/18 06:59 Baso # 0.0 K/mm3 (0.0-0.1) 11/16/18 06:59 Seg Neutrophils % 68.0 % (40.0-70.0) 11/16/18 06:59 Seg Neutrophils # 2.4 K/mm3 (1.8-7.7) 11/16/18 06:59 PT 13.6 Sec. (12.2-14.9) 11/14/18 18:22 INR 1.07 (0.87-1.13) 11/14/18 18:22 APTT 27.5 Sec. (24.2-36.6) 11/14/18 18:22 Sodium 139 mmol/L (137-145) 11/17/18 05:24 Potassium 3.3 mmol/L (3.6-5.0) L 11/17/18 05:24 Chloride 104.5 mmol/L (98-107) 11/17/18 05:24 Carbon Dioxide 22 mmol/L (22-30) 11/17/18 05:24 16 mmol/L 11/17/18 05:24 BUN 5 mg/dL (7-17) L 11/17/18 05:24 0.5 mg/dL (0.7-1.2) L 11/17/18 05:24 Estimated GFR > 60 ml/min 11/17/18 05:24 10 % 11/17/18 05:24 Glucose 112 mg/dL (65-100) H 11/17/18 05:24 POC Glucose 115 (70-105) H 11/17/18 06:20 Calcium 8.4 mg/dL (8.4-10.2) 11/17/18 05:24 Magnesium 1.60 mg/dL (1.7-2.3) L 11/14/18 21:20 0.80 mg/dL (0.1-1.2) 11/15/18 04:41 0.4 mg/dL (0-0.2) H 11/15/18 04:41 0.4 mg/dL 11/15/18 04:41 AST 95 units/L (5-40) H 11/15/18 04:41 ALT 50 units/L (7-56) 11/15/18 04:41 78 units/L (35-129) 11/15/18 04:41 < 0.010 ng/mL (0.00-0.029) 11/14/18 18:22 6.6 g/dL (6.3-8.2) 11/15/18 04:41 3.6 g/dL (3.9-5) L 11/15/18 04:41 1.2 % 11/15/18 04:41 111 units/L (13-60) H 11/14/18 18:22 TSH 3.010 mlU/mL (0.270-4.200) 11/15/18 04:41 Yellow (Yellow) 11/14/18 21:01 Clear (Clear) 11/14/18 21:01 6.0 (5.0-7.0) 11/14/18 21:01 Ur Specific [place] 1.017 (1.003-1.030) 11/14/18 21:01 30 mg/dl mg/dL (Negative) 11/14/18 21:01 Neg mg/dL (Negative) 11/14/18 21:01 Neg mg/dL (Negative) 11/14/18 21:01 Lg (Negative) 11/14/18 21:01 Neg (Negative) 11/14/18 21:01 Neg (Negative) 11/14/18 21:01 < 2.0 mg/dL (<2.0) 11/14/18 21:01 Ur Leukocyte Esterase Sm (Negative) 11/14/18 21:01 18.0 /HPF (0.0-6.0) H 11/14/18 21:01 3.0 /HPF (0.0-6.0) 11/14/18 21:01 U Epithel Cells (Auto) 1.0 /HPF (0-13.0) 11/14/18 21:01 Few /HPF 11/14/18 21:01 Presumptive positive 11/14/18 21:01 Presumptive negative 11/14/18 21:01 Ur Barbiturates Screen Presumptive negative 11/14/18 21:01 Ur Phencyclidine Scrn Presumptive negative 11/14/18 21:01 Ur Amphetamines Screen Presumptive negative 11/14/18 21:01 U Benzodiazepines Scrn Presumptive positive 11/14/18 21:01 Presumptive negative 11/14/18 21:01 U Marijuana (THC) Screen Presumptive negative 11/14/18 21:01 Disclamer 11/14/18 21:01 Plasma/Serum Alcohol < 0.01 % (0-0.07) 11/14/18 21:12 Active Medications - Current Medications Current Medications: Generic Name Dose Route Start Last Admin Trade Name Freq PRN Reason Stop Dose Admin Acetaminophen 650 mg 11/14/18 22:22 Tylenol PO Q4H PRN Pain MILD(1-3)/Fever >100.5/LINARES Al Hydrox/Mg Hydrox/Simethicone 30 ml 11/14/18 22:22 Alum-Mag Hydrox-Simeth 460-089-32hm/5ml PO Q4H PRN Indigestion Alprazolam 1 mg 11/17/18 09:00 11/17/18 09:29 Xanax PO 1 mg Q8H PRN Administration Anxiety Bupropion HCl 150 mg 11/17/18 10:00 11/17/18 09:29 Wellbutrin Sr PO 150 mg BID WALDO Administration Hydralazine HCl 10 mg 11/15/18 23:07 Apresoline IV Q4H PRN BP >160/100 Dextrose/Sodium Chloride 1,000 mls @ 100 mls/hr 11/14/18 23:00 11/17/18 04:39 D5ns IV 100 mls/hr DIRECT WALDO Administration Sodium Chloride 1,000 mls @ 50 mls/hr 11/15/18 15:00 11/15/18 17:33 Nacl 0.9% 1000 Ml IV 50 mls/hr DIRECT WALDO Administration Sodium Chloride 1,000 mls @ 50 mls/hr 11/16/18 12:00 Nacl 0.9% 1000 Ml IV DIRECT WALDO Lisinopril 10 mg 11/15/18 10:00 11/17/18 09:29 Zestril PO 10 mg QDAY WALDO Administration Metoclopramide HCl 10 mg 11/14/18 21:13 11/15/18 19:58 Reglan IV 10 mg Q6H PRN Administration Nausea And Vomiting Morphine Sulfate 2 mg 11/14/18 22:22 11/17/18 09:29 Morphine IV 2 mg Q4H PRN Administration Pain, Moderate (4-6) Pantoprazole Sodium 40 mg 11/17/18 10:00 11/17/18 09:29 Protonix PO 40 mg BID WALDO Administration Phenol 1 spray 11/16/18 08:22 Chloraseptic MM PRN PRN Sore Throat Quetiapine Fumarate 400 mg 11/14/18 23:00 11/16/18 19:47 Seroquel PO 400 mg QPM WALDO Administration Sodium Chloride 10 ml 11/15/18 10:00 11/17/18 09:29 Sodium Chloride Flush Syringe 10 Ml IV 10 ml BID WALDO Administration Sodium Chloride 10 ml 11/14/18 22:22 Sodium Chloride Flush Syringe 10 Ml IV PRN PRN LINE FLUSH
[2018-11-17 15:15] LABS: BUN/Creatinine Ratio 6; Blood Urea Nitrogen 3 mg/dL (7-17); Calcium 8.4 mg/dL (8.4-10.2); Hemolysis Index 9
--- NOTE | 2018-11-17 17:22 | Progress Note ---
Assessment and Plan 1. N/V - resolved. Has gastritis noted on EGD. Significant functional component due to anxiety. - adv diet as tolerated - f/u pathology - add Carafate if symptoms persist. Subjective Date of service: 11/17/18 Interval history: Feels better. Ash clears well. Objective - Constitutional Vitals: Vital Signs - 12hr 11/17/18 11:23 Temperature 98.0 F Pulse Rate 91 H Respiratory 18 Rate Blood Pressure 143/98 O2 Sat by Pulse 96 Oximetry General appearance: Present: other (Anxious) - EENT Eyes: PERRL, EOM intact ENT: hearing intact - Respiratory Respiratory effort: normal - Gastrointestinal General gastrointestinal: Present: soft, non-tender - Labs CBC & Chem 7: 11/16/18 06:59 11/17/18 14:42 Labs: Abnormal lab results 11/17/18 11/17/18 11/17/18 Range/Units 05:24 06:20 11:32 Sodium (137-145) mmol/L Potassium 3.3 L (3.6-5.0) mmol/L BUN 5 L (7-17) mg/dL Creatinine 0.5 L (0.7-1.2) mg/dL Glucose 112 H (65-100) mg/dL POC Glucose 115 H 133 H (70-105) 11/17/18 11/17/18 Range/Units 14:42 16:14 Sodium 135 L (137-145) mmol/L Potassium (3.6-5.0) mmol/L BUN 3 L (7-17) mg/dL Creatinine 0.5 L (0.7-1.2) mg/dL Glucose 129 H (65-100) mg/dL POC Glucose 117 H (70-105) Medications & Allergies - Medications Allergies/Adverse Reactions: Allergies No Known Allergies Allergy (Verified 08/06/18 12:43) Home Medications: Home Medications Medication Instructions Recorded Confirmed Last Taken Type Quetiapine Fumarate [QUEtiapine 400 mg PO QPM #10 tablet 12/11/15 11/14/18 Unknown Rx Fumarate] Xanax TAB 1 mg PO TID PRN #21 12/11/15 11/14/18 Unknown Rx traMADol [Ultram 50 MG tab] 50 mg PO Q6HR PRN #20 tablet 02/09/16 11/14/18 Unkn own Rx Lisinopril [Zestril TAB] 10 mg PO QDAY 11/14/18 11/14/18 Unknown History Omeprazole 40 mg PO DAILY 11/14/18 11/14/18 Unknown History Tylenol /Codeine # 3 tab 1 tab PO Q6H 11/14/18 11/14/18 Unknown History buPROPion SR [Wellbutrin Sr] 150 mg PO QAM 11/14/18 11/14/18 Unknown History Active Medications: Generic Name Dose Route Start Last Admin Trade Name Freq PRN Reason Stop Dose Admin Acetaminophen 650 mg 11/14/18 22:22 Tylenol PO Q4H PRN Pain MILD(1-3)/Fever >100.5/LINARES Al Hydrox/Mg Hydrox/Simethicone 30 ml 11/14/18 22:22 Alum-Mag Hydrox-Simeth 599-834-77fz/5ml PO Q4H PRN Indigestion Alprazolam 1 mg 11/17/18 09:00 11/17/18 09:29 Xanax PO 1 mg Q8H PRN Administration Anxiety Bupropion HCl 150 mg 11/17/18 10:00 11/17/18 09:29 Wellbutrin Sr PO 150 mg BID WALDO Administration Hydralazine HCl 10 mg 11/15/18 23:07 Apresoline IV Q4H PRN BP >160/100 Dextrose/Sodium Chloride 1,000 mls @ 100 mls/hr 11/14/18 23:00 11/17/18 13:16 D5ns IV 100 mls/hr DIRECT WALDO Administration Sodium Chloride 1,000 mls @ 50 mls/hr 11/15/18 15:00 11/15/18 17:33 Nacl 0.9% 1000 Ml IV 50 mls/hr DIRECT WALDO Administration Sodium Chloride 1,000 mls @ 50 mls/hr 11/16/18 12:00 Nacl 0.9% 1000 Ml IV DIRECT WALDO Lisinopril 10 mg 11/15/18 10:00 11/17/18 09:29 Zestril PO 10 mg QDAY WALDO Administration Metoclopramide HCl 10 mg 11/14/18 21:13 11/15/18 19:58 Reglan IV 10 mg Q6H PRN Administration Nausea And Vomiting Morphine Sulfate 2 mg 11/14/18 22:22 11/17/18 09:29 Morphine IV 2 mg Q4H PRN Administration Pain, Moderate (4-6) Pantoprazole Sodium 40 mg 11/17/18 10:00 11/17/18 09:29 Protonix PO 40 mg BID WALDO Administration Phenol 1 spray 11/16/18 08:22 Chloraseptic MM PRN PRN Sore Throat Quetiapine Fumarate 400 mg 11/14/18 23:00 11/16/18 19:47 Seroquel PO 400 mg QPM WALDO Administration Sodium Chloride 10 ml 11/15/18 10:00 11/17/18 09:29 Sodium Chloride Flush Syringe 10 Ml IV 10 ml BID WALDO Administration Sodium Chloride 10 ml 11/14/18 22:22 Sodium Chloride Flush Syringe 10 Ml IV PRN PRN LINE FLUSH
[2018-11-18] MEDS: XANAX PO PRN (06:18)
[2018-11-18 08:10] LABS: BUN/Creatinine Ratio 5; Blood Urea Nitrogen 2 mg/dL (7-17); Calcium 8.4 mg/dL (8.4-10.2); Hemolysis Index 12
[2018-11-18] MEDS ORDERED: K-DUR PO ONE (08:30)
--- NOTE | 2018-11-18 08:37 | Discharge Summary ---
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 worsening Dyspeps 11/17/18 09:50 Physical Therapy Evaluation and Treat [CONS] Routine Comment: Reason For Exam: deconditioning [facility] Reason for admission: UGI bleeding, severe gastritis Condition: Stable Pertinent studies: EGD Hospital course: 58F with PMH of HTN, BIpolar D/o, Asthma exacerbation, PUD, s/p EGD done a year ago, here at [facility] per pt and his ex spouse with whom she lives still, presents with multiple complaints of recent falls,, profuse nausea and vomiting and scattered epigastric pains, pt states that she has had N/V with meals that she has not been eating well and that " my ulcer is acting up and when it acts up like this, I cannot eat" She states she has been taking her medication. Of note, she is on Omeprazole 40mg PO Daily. She denies any hematochezia, melena, hematemesis albeit she says at times, after vomiting, she notices blood tinged emesis. She last fell 4 days ago in the bathtub and she sustained a left chest well bruise. Since then she denies any substernal CP, SOB She has not had a colonoscopy that she can remember. She reports having no appetite but she is unsure if she has lost weight. She reports been dizzy when she gets up. In the ED, she was found to have NA level of 126. it was 135 on 03/30/2017 and she has a hx of intermittent hyponatremia to mid to upper 120s at times. CT of the abdomen and pelvis report some areas of enteritis. Patient was admitted to the floor and nausea and vomiting was continued, patient was placed on NG tube and around 600 mL of dark fluid was taken out. Patient was nothing by mouth and EGD was done which showed gastritis. Patient was treated with IV pantoprazole and currently she tolerated diet. GI evaluated her and cleared for discharge and will follow the biopsy results in the office. Patient had hyperkalemia and repleted and repeat potassium was 3.8. Patient was initially started his antibiotics and later discontinued. Patient was hemod ynamically stable at the time of discharge. Patient has omeprazole and other appropriate medications at home and doesn't any prescription. Patient discharged home in a stable condition. Disposition: [id number] TO HOME OR SELFCARE Time spent for discharge: 32 minutes - Discharge Diagnoses (1) Gastritis and duodenitis Status: Acute (2) Dehydration Status: Acute (3) Intractable nausea and vomiting Status: Acute Qualifiers: Vomiting type: unspecified Qualified Code(s): R11.2 - Nausea with vomiting, unspecified Core Measure Documentation - Palliative Care Palliative Care/ Comfort Measures: Not Applicable - Core Measures Any of the following diagnoses?: none Exam - Physical Exam Narrative exam: Not in cardiopulmonary distress. The patient appeared well nourished and normally developed. Vital signs as documented. Head exam is unremarkable. No scleral icterus . Neck is without jugular venous distension, thyromegaly, or carotid bruits. Lungs are clear to auscultation. Cardiac exam reveals regular rate and Rhythm. First and second heart sounds normal. No murmurs, rubs or gallops. Abdominal exam reveals normal bowel sounds, no masses, no organomegaly and no a ortic enlargement. Extremities are nonedematous and both femoral and pedal pulses are normal. 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 No focal weakness. - Constitutional Vitals: Temp Pulse Resp BP Pulse Ox 98.9 F 92 H 20 145/105 96 11/18/18 06:02 11/18/18 06:02 11/18/18 06:02 11/18/18 06:02 11/18/18 06:02 Plan Activity: no restrictions Weight Bearing Status: Full Weight Bearing Diet: low salt Follow up with: DANTE RAMOS MD [Primary Care Provider] - 7 Days
[2018-11-18] MEDS: WELLBUTRIN SR PO SCH (09:20)
[2018-11-18] MEDS: K-DUR PO SCH ×2 (09:20→10:27)
[2018-11-18] MEDS: PROTONIX PO SCH (09:20)
[2018-11-18] MEDS: MORPHINE IV PRN (09:21)
[2018-11-18] MEDS: ZESTRIL PO SCH (09:25)
[2018-11-18] MEDS: SODIUM CHLORIDE FLUSH SYRINGE 10 ML IV SCH (09:26)
--- NOTE | 2018-11-18 09:48 | Gastroenterology Progress Note ---
Assessment and Plan 1.intractable N/V 2.LUQ abdominal pain (intermittent; chronic) 3.H/o PUD -abd CT showed mildly dilated segment of small bowel at LUQ (likely incidental) but no obstruction or localized inflammation -abd U/S-fatty infiltration of liver -EGD 2015 revealed a gastric ulcer and small hiatal hernia -s/p repeat EGD 11/16/18 that showed gastritis and moderate size hiatal hernia (No GOO or ulcer) -etiology-Significant functional component due to anxiety -clinically, patient reports feeling better with N/V now resolved. Tolerating diet. Denies abd pain. -f/u bx results in clinic -continue PPI -consider carafate if symptoms persist -continue supportive care -patient okay to be d/c per GI standpoint on PPI with f/u in clinic -will sign off, please call if needed Subjective Date of service: 11/18/18 Principal diagnosis: N/V Interval history: No acute distress. Reports N/V resolved. Denies abd pain. Tolerating diet. Objective - Constitutional Vitals: Temp Pulse Resp BP Pulse Ox 98.9 F 99 H 20 151/103 96 11/18/18 06:02 11/18/18 09:25 11/18/18 06:02 11/18/18 09:25 11/18/18 06:02 General appearance: no acute distress - EENT Eyes: PERRL, EOM intact ENT: hearing intact - Respiratory Respiratory effort: normal - Cardiovascular Rhythm: regular - Gastrointestinal General gastrointestinal: Present: soft, non-tender, non-distended, normal bowel sounds - Labs CBC & Chem 7: 11/16/18 06:59 11/18/18 06:52 Labs: Laboratory Results - last 24 hr 11/17/18 11/17/18 11/17/18 11:32 14:42 16:14 Sodium 135 L Potassium 3.8 Chloride 101.0 Carbon Dioxide 22 Anion Gap 16 BUN 3 L Creatinine 0.5 L Estimated GFR > 60 BUN/Creatinine Ratio 6 Glucose 129 H POC Glucose 133 H 117 H Calcium 8.4 11/17/18 11/18/18 11/18/18 21:23 06:52 08:11 Sodium 137 Potassium 2.9 L* D Chloride 101.8 Carbon Dioxide 21 L Anion Gap 17 BUN 2 L Creatinine 0.4 L Estimated GFR > 60 BUN/Creatinine Ratio 5 Glucose 112 H POC Glucose 100 110 H Calcium 8.4
[2018-11-18 11:39] VITALS: BP 144/95
[2018-11-18] MEDS ORDERED: XYLOCAINE MPF 2% ONE (12:30)
[2018-11-18 13:17] LABS: BUN/Creatinine Ratio 8; Blood Urea Nitrogen 3 mg/dL (7-17); Calcium 8.5 mg/dL (8.4-10.2); Hemolysis Index 12
== END 2018-11-18 16:20 | disposition home or self-care (01) | DRG 378 ==
LOC: ED 13:45 → 3A 22:23
PROVIDERS: ADMIT Hospitalist; ATTEND Internal Medicine
PROC: 0D9670Z Drainage of Stomach with Drainage Device, Via Natural or Artificial Opening (ICD-10-PCS; principal; 2018-11-15)
PROC: 0DB68ZX Excision of Stomach, Via Natural or Artificial Opening Endoscopic, Diagnostic (ICD-10-PCS; 2018-11-16)
PROC: 0DB78ZX Excision of Stomach, Pylorus, Via Natural or Artificial Opening Endoscopic, Diagnostic (ICD-10-PCS; 2018-11-16)
DX: K29.71 Gastritis, unspecified, with bleeding (principal); E87.1 Hypo-osmolality and hyponatremia; D64.9 Anemia, unspecified; I10 Essential (primary) hypertension; E86.0 Dehydration; I16.0 Hypertensive urgency; K44.9 Diaphragmatic hernia without obstruction or gangrene; K29.80 Duodenitis without bleeding; E86.1 Hypovolemia; R91.8 Other nonspecific abnormal finding of lung field; E87.5 Hyperkalemia; R79.89 Other specified abnormal findings of blood chemistry; F41.9 Anxiety disorder, unspecified; F31.9 Bipolar disorder, unspecified; Z82.49 Family history of ischemic heart disease and other diseases of the circulatory system; Z79.899 Other long term (current) drug therapy; Z90.711 Acquired absence of uterus with remaining cervical stump; Z87.891 Personal history of nicotine dependence; Z87.11 Personal history of peptic ulcer disease; Z91.81 History of falling
CPT/HCPCS: 36415; 71045; 74018; 74177; 76700; 80048; 80076; 80307; 80320; 81001; 82962; 83690; 83735; 84443; 84484; 85025; 85027; 85610; 85730; 87086; 88305; 88342; 93005; 93010; 96361; 96365; 96375; G0378; C9113; G0480; J0330; J1200; J1956; J2060; J2270; J2405; J2704; J2765; J3475; J3480; J7030; J7042; Q9967